=== PATIENT | female | born 1975 | race Caucasian/White ===

== ENCOUNTER 2020-07-14 13:36 | Emergency (ER) | payer MEDICAID ==
[~2020-07-14] VITALS: Ht 157.5 cm; Wt 75.7 kg
[2020-07-14] MEDS ORDERED: IV NS 0.9% 1,000 ML BAG IV ONE (14:00)
--- NOTE | 2020-07-14 14:00 | NUR ---
BIB DAUGHTER C/O HIGH BLOOD SUGAR "UNABLE TO READ PER PT SHOWS HIGH". PT AAOX4, VSS. RR EVEN & UNLABORED. DENIES CP, SOB AT THIS TIME. PT SEEN & EVAL'D BY DR. ALONSO. WILL CONT TO MONITOR.
[2020-07-14 14:20] LABS: BASOPHILS # (AUTO) 0.1 /CMM (0.0-0.2); BASOPHILS % (AUTO) 0.8 % (0.0-2.0); EOSINOPHILS % (AUTO) 0.9 % (0.0-6.0); HEMATOCRIT 36 % (33-45); HEMOGLOBIN 11.8 g/dL (11.5-14.8); LYMPHOCYTES # (AUTO) 2.3 /CMM (0.8-4.8); LYMPHOCYTES % (AUTO) 30.3 % (20.0-44.0); MEAN CORPUSCULAR HGB CONC 33 g/dl (31.0-36.0); MEAN CORPUSCULAR VOLUME 89 fL (82-100); MONOCYTES # (AUTO) 0.7 /CMM (0.1-1.30); NEUTROPHILS # (AUTO) 4.4 /CMM (1.8-8.9); PLATELET COUNT (AUTO) 376 /CMM (150-450); RED BLOOD CELL COUNT(AUTO) 4.07 MIL/uL (4.0-5.2); WHITE BLOOD COUNT (AUTO) 7.5 K/uL (4.3-11.0)
[2020-07-14 14:26] LABS: CALCIUM, SERUM 9.6 mg/dL (8.5-10.1); CARBON DIOXIDE 27 mmol/L (21-32); CHLORIDE 90 mmol/L (98-107); CREATININE 1.3 mg/dL (0.6-1.3); POTASSIUM 4.4 mmol/L (3.5-5.1); SODIUM SERUM 125 mmol/L (136-145); UREA NITROGEN, BLOOD 15 mg/dL (7-18)
[2020-07-14 14:27] LABS: GLUCOSE 703 mg/dL (74-106)
[2020-07-14 14:28] LABS: ALANINE AMINOTRANSFERASE 15 U/L (12-78); ALBUMIN 2.5 g/dL (3.4-5.0); ALKALINE PHOSPHATASE 139 U/L (46-116); ASPARTATE AMINOTRANSFERASE 13 U/L (15-37); BILIRUBIN,DIRECT 0.1 mg/dL (0.0-0.2); BILIRUBIN,TOTAL 0.5 mg/dL (0.2-1.0); LIPASE 150 U/L (73-393); TOTAL PROTEIN, SERUM 8.4 g/dL (6.4-8.2)
[2020-07-14] MEDS ORDERED: IV NS 0.9% 1,000 ML IV ONE (15:00)
[2020-07-14] MEDS ORDERED: INSULIN ASPART/LISPRO 100 UNIT/ML CARTRIDGE SQ STA (16:33)
[2020-07-14] MEDS ORDERED: INSULIN REGULAR, HUMAN 100 UNIT/ML 10 ML VIAL ONE (16:42)
--- NOTE | 2020-07-14 16:48 | NUR ---
MEDICATED PER ERMD ORDER, PT AP WELL. WILL CONT TO MONITOR.
[2020-07-14 17:21] LABS: BILIRUBIN,URINE NEGATIVE (NEGATIVE); COLOR,URINE YELLOW (YELLOW); NITRITE, URINE NEGATIVE (NEGATIVE); PROTEIN,URINE NEGATIVE (NEGATIVE); UGLUCOSE >=1000 mg/dL (NEGATIVE); UROBILINOGEN,URINE 0.2 EU/dL (0.2)
[2020-07-14 17:37] LABS: BACTERIA,URINE Few /HPF (None Seen); LEUKOCYTE ESTERASE ,URINE 1+ (NEGATIVE); SQUAMOUS EPITHELIAL CELL,UR Few /HPF (None Seen)
[2020-07-14] MEDS ORDERED: METF-440 PO (17:42)
[2020-07-14 18:57] VITALS: BP 142/89
--- NOTE | 2020-07-14 18:57 | NUR ---
Patient discharged to home in stable condition. Written and verbal after care instructions given. Patient verbalizes understanding of instruction. IV removed. Catheter intact and site benign. Pressure and 4x4 applied to site. No bleeding noted.
== END 2020-07-14 18:58 | disposition home or self-care (01) ==
LOC: ER 13:40
DX: E11.65 Type 2 diabetes mellitus with hyperglycemia (principal); R00.0 Tachycardia, unspecified; Z86.16 Personal history of COVID-19; Z98.890 Other specified postprocedural states; Z79.4 Long term (current) use of insulin
CPT/HCPCS: 36415; 80048; 80076; 81001; 82962; 83690; 84484; 84703; 85025; 87086; 93005; 96360; 96361; 96372; 99284; J1815; J7030 ×2

== ENCOUNTER 2020-07-20 11:09 | Emergency (ER) | payer MEDICAID ==
[~2020-07-20] VITALS: Ht 157.5 cm; Wt 78.5 kg
[~2020-07-20 11:09] MED LIST: METF-440 PO
--- NOTE | 2020-07-20 11:25 | NUR ---
PATIENT IS BEING SEE BY DR BUSTAMANTE.
--- NOTE | 2020-07-20 11:30 | NUR ---
THE PATIENT IS BIB FAMILY MEMBER FOR C/O HEADACHE, NAUSEA AND VOMITING X 3 DAYS S/P TAKING METFORMIN. THE PATIENT RATES HEADACJE 5/[address] BUSTAMANTE IS AWARE. THE PATIENT DENIES SOB. RESPIRATION REGULAR AND UNLABORED. PATIENT IS PROVIDED WITH A WARM BLANKET FOR COMFORT. WILL CONTINUE TO MONITOR.
[2020-07-20 11:42] LABS: BASOPHILS # (AUTO) 0.1 /CMM (0.0-0.2); BASOPHILS % (AUTO) 0.7 % (0.0-2.0); EOSINOPHILS % (AUTO) 2.1 % (0.0-6.0); HEMATOCRIT 35 % (33-45); HEMOGLOBIN 11.7 g/dL (11.5-14.8); LYMPHOCYTES # (AUTO) 2.1 /CMM (0.8-4.8); LYMPHOCYTES % (AUTO) 27.8 % (20.0-44.0); MEAN CORPUSCULAR HGB CONC 34 g/dl (31.0-36.0); MEAN CORPUSCULAR VOLUME 87 fL (82-100); MONOCYTES # (AUTO) 0.6 /CMM (0.1-1.30); MONOCYTES % (AUTO) 7.9 % (2.0-12.0); NEUTROPHILS # (AUTO) 4.6 /CMM (1.8-8.9); NEUTROPHILS % (AUTO) 61.5 % (43.0-81.0); PLATELET COUNT (AUTO) 521 /CMM (150-450); RED BLOOD CELL COUNT(AUTO) 4.02 MIL/uL (4.0-5.2); WHITE BLOOD COUNT (AUTO) 7.5 K/uL (4.3-11.0)
--- NOTE | 2020-07-20 11:46 | NUR ---
URINE COLLECTED AND SENT IT TO THE LAB
[2020-07-20 11:49] LABS: BILIRUBIN,URINE Negative (NEGATIVE); COLOR,URINE YELLOW (YELLOW); LEUKOCYTE ESTERASE ,URINE Negative (NEGATIVE); NITRITE, URINE Negative (NEGATIVE); PH,URINE 6.5 (5.0-8.0); PROTEIN,URINE 100 mg/dl (NEGATIVE); UGLUCOSE 500 MG/DL mg/dL (NEGATIVE); UROBILINOGEN,URINE 0.2 EU/dL (0.2)
[2020-07-20 11:53] LABS: CALCIUM, SERUM 9.6 mg/dL (8.5-10.1); CREATININE 0.8 mg/dL (0.6-1.3); POTASSIUM 4.6 mmol/L (3.5-5.1)
[2020-07-20 11:57] LABS: BACTERIA,URINE Few /HPF (None Seen); SQUAMOUS EPITHELIAL CELL,UR 0-2 /HPF (None Seen); WBC,URINE 0-2 /HPF (0-3)
[2020-07-20] MEDS ORDERED: INSULIN REGULAR, HUMAN 100 UNIT/ML 10 ML VIAL SQ ONE (12:00)
[2020-07-20 12:14] LABS: ALBUMIN 2.7 g/dL (3.4-5.0); BILIRUBIN,DIRECT 0.1 mg/dL (0.0-0.2); BILIRUBIN,TOTAL 0.5 mg/dL (0.2-1.0); TOTAL PROTEIN, SERUM 8.2 g/dL (6.4-8.2)
--- NOTE | 2020-07-20 12:25 | NUR ---
The patient is alert and oriented x4. Jose pain at this time. Respiration regular and unlabored and denies sob. Patient discharged to home in stable condition. Written and verbal after care instructions given. Patient verbalizes understanding of instruction. The patient left ER in stable condition.
[2020-07-20 12:30] VITALS: BP 138/86
== END 2020-07-20 12:30 | disposition home or self-care (01) ==
LOC: ER 11:10
DX: E11.65 Type 2 diabetes mellitus with hyperglycemia (principal); Z79.84 Long term (current) use of oral hypoglycemic drugs
CPT/HCPCS: 36415; 80048; 80076; 81001; 82962; 83690; 85025; 96372; 99283; J1815

== ENCOUNTER 2021-05-05 14:14 | Emergency (ER) | payer MEDICAID ==
[~2021-05-05] VITALS: Ht 152.4 cm; Wt 72.6 kg
--- NOTE | 2021-05-05 14:25 | NUR ---
PT BIBDAUGHTER C/O LEFT UPPER THIGH ABCESS, FEVER, CHILLS, NAUSEA, HEADACHE AFEBRILE UPON ARRIVAL, HR 124. PT A/OX4. TOLERATING R/A WELL WITH NO SOB.
--- NOTE | 2021-05-05 14:37 | NUR ---
LAW JAIN AT PT'S BEDSIDE
[2021-05-05] MEDS ORDERED: CLIN300C12 PO (15:00)
[2021-05-05 15:19] VITALS: BP 132/76
--- NOTE | 2021-05-05 15:19 | NUR ---
Patient discharged to home in stable condition. Written and verbal after care instructions given. Patient verbalizes understanding of instruction.
== END 2021-05-05 15:20 | disposition home or self-care (01) ==
LOC: ER 14:25
DX: L02.416 Cutaneous abscess of left lower limb (principal); L03.116 Cellulitis of left lower limb; E11.9 Type 2 diabetes mellitus without complications; Z79.84 Long term (current) use of oral hypoglycemic drugs; Z79.2 Long term (current) use of antibiotics
CPT/HCPCS: A6403

== ENCOUNTER 2021-05-12 18:58 | Inpatient (IN) | payer MEDICAID ==
[~2021-05-12] VITALS: Ht 152.4 cm; Wt 86.2 kg
[~2021-05-12 18:58] MED LIST changes: +CLIN300C12 PO
--- NOTE | 2021-05-12 19:58 | NUR ---
BIBS C/O LT THIGH ABSCESS X TUE, SEEN AT [facility] 05/05/21, STATES NOT GETTING BETTER AFTER ABX TREATMENT. PT CHANGED INTO A GOWN AND PLACED ON MONITOR AND V/S STABLE.
[2021-05-12] MEDS ORDERED: ONDANSETRON HCL/PF 4 MG/2 ML VIAL IVP ONE (20:00)
[2021-05-12] MEDS ORDERED: VANCOMYCIN 1 GM in IV D5W 250 ML IV ONE (20:00)
[2021-05-12] MEDS ORDERED: MORPHINE SULFATE INJ 2 MG/ML DISP.SYRIN IV ONE (20:00)
[2021-05-12] MEDS ORDERED: LIDOCAINE 2%-EPI 1:100,000 30 ML VIAL TP ONE (20:00)
[2021-05-12] MEDS ORDERED: HYDROGEN PEROXIDE 480 ML BOTTLE TP ONE (20:00)
[2021-05-12] MEDS ORDERED: PIPERACILLIN /TAZOBACTAM 3.375 G in IV D5W 50 ML IV ONE (20:00)
[2021-05-12] MEDS ORDERED: IV NS 0.9% 1,000 ML BAG IV ONE ×2 (20:00→22:30)
[2021-05-12] MEDS ORDERED: LIDOCAINE 1%-EPI 1:100,000 20 ML VIAL ONE (20:12)
[2021-05-12] MEDS ORDERED: PIPERACILLIN /TAZOBACTAM 3.375 G VIAL IV ONE (20:16)
[2021-05-12] MEDS ORDERED: ONDANSETRON HCL/PF 4 MG/2 ML VIAL ONE (20:16)
[2021-05-12] MEDS ORDERED: VANCOMYCIN 1 GM VIAL ONE (20:16)
[2021-05-12] MEDS ORDERED: MORPHINE SULFATE INJ 4 MG/ML DISP.SYRIN ONE (20:17)
--- NOTE | 2021-05-12 20:32 | NUR ---
RFA #20G S/L; PATENT AND INTACT. BLOOD COLLECTED AND GIVEN TO LAB
--- NOTE | 2021-05-12 20:34 | NUR ---
RUSSELL CAO AT PT'S BEDSIDE DOING WOUNDCARE TO PT'S LEFT THIGH. WOUND CX COLLECTED AND SENT TO LAB
[2021-05-12 21:04] LABS: CALCIUM, SERUM 9.4 mg/dL (8.5-10.1); CREATININE 0.9 mg/dL (0.6-1.3); POTASSIUM 4.4 mmol/L (3.5-5.1)
[2021-05-12 21:10] LABS: ALBUMIN 2.5 g/dL (3.4-5.0); BILIRUBIN,DIRECT 0.1 mg/dL (0.0-0.2); BILIRUBIN,TOTAL 0.3 mg/dL (0.2-1.0); TOTAL PROTEIN, SERUM 8.2 g/dL (6.4-8.2)
[2021-05-12 21:51] LABS: BASOPHILS # (AUTO) 0.1 K/uL (0.0-0.2); BASOPHILS % (AUTO) 0.6 % (0.0-2.0); EOSINOPHILS % (AUTO) 1.9 % (0.0-6.0); HEMATOCRIT 29 % (33-45); HEMOGLOBIN 9.6 g/dL (11.5-14.8); LYMPHOCYTES # (AUTO) 4.9 K/uL (0.8-4.8); LYMPHOCYTES % (AUTO) 37.9 % (20.0-44.0); MEAN CORPUSCULAR HGB CONC 33 g/dl (31.0-36.0); MEAN CORPUSCULAR VOLUME 88 fL (82-100); MONOCYTES % (AUTO) 7.6 % (2.0-12.0); NEUTROPHILS # (AUTO) 6.7 K/uL (1.8-8.9); PLATELET COUNT (AUTO) 538 K/uL (150-450); RED BLOOD CELL COUNT(AUTO) 3.32 MIL/uL (4.0-5.2); WHITE BLOOD COUNT (AUTO) 12.9 K/uL (4.3-11.0)
[2021-05-12] MEDS ORDERED: ZOLPIDEM TARTRATE 5 MG TABLET PO PRN (23:30)
[2021-05-12] MEDS ORDERED: ACETAMINOPHEN 325 MG TABLET PO PRN (23:30)
[2021-05-12] MEDS ORDERED: MAG HYDROX/AL HYDROX/SIMETH 30 ML UDC PO PRN (23:30)
[2021-05-12] MEDS ORDERED: MAGNESIUM HYDROXIDE 30 ML UDC PO PRN (23:30)
[2021-05-12] MEDS ORDERED: Z GUARD REMEDY 4 OZ OINT TP PRN (23:30)
[2021-05-12] MEDS ORDERED: ONDANSETRON HCL/PF 4 MG/2 ML VIAL IVP PRN (23:30)
--- NOTE | 2021-05-12 23:54 | NUR ---
REPORT GIVEN TO SUMANTH
[2021-05-13] MEDS ORDERED: PIPERACILLIN /TAZOBACTAM 4.5 G in IV D5W 50 ML IV SCH
--- NOTE | 2021-05-13 00:06 | NUR ---
PT TRANSPORTED TO ROOM 314 ON [facility] PER ACLS PROTOCOL WITHOUT INCIDENT
[2021-05-13 00:10] VITALS: BP 160/96
--- NOTE | 2021-05-13 00:10 | NUR ---
MS RN NOTES PATIENT ARRIVED ON UNIT VIA GURNEY WITH ER NURSE. PATIENT LAYING AWAKE IN BED. PATIENT IS OCCITAN SPEAKING. A/OX4. PATIENT WITH REGULAR AND UNLABORED BREATHING ON ROOM AIR TOLERATED WELL. NO SIGNS AND SYMPTOMS OF DISTRESS NOTED AT THIS TIME. NO COMPLAINS OF PAIN OR DISCOMFORT AT THIS TIME. IV ACCESS RFA G #20 SL. IV ACCESS PATENT AND INTACT. SAFETY PRECAUTIONS ENFORCED WITH BED LOCKED AND AT LOWEST POSITION. SIDERAILS UP X2. CALL LIGHT WITHIN REACH AT ALL TIMES. WILL CONTINUE TO MONITOR PATIENT.
[2021-05-13] MEDS: IV NS 0.9% 1,000 ML IV SCH ×3 (00:21→19:48)
[2021-05-13 01:29] LABS: BILIRUBIN,URINE NEGATIVE (NEGATIVE); COLOR,URINE YELLOW (YELLOW); LEUKOCYTE ESTERASE ,URINE NEGATIVE (NEGATIVE); NITRITE, URINE NEGATIVE (NEGATIVE); PH,URINE 6.5 (5.0-8.0); PROTEIN,URINE >=300 mg/dl (NEGATIVE); UGLUCOSE 250 MG/DL mg/dL (NEGATIVE); UROBILINOGEN,URINE 0.2 EU/dL (0.2)
[2021-05-13] MEDS ORDERED: ZOSYN IVPB 3.375 G in IV D5W 50ml IV ONE (02:00)
[2021-05-13] MEDS ORDERED: PIPERACILLIN /TAZOBACTAM 3.375 G VIAL IV ONE (02:00)
[2021-05-13 06:48] LABS: CALCIUM, SERUM 8.8 mg/dL (8.5-10.1); CREATININE 0.9 mg/dL (0.6-1.3); MAGNESIUM 1.7 mg/dL (1.8-2.4); PHOSPHORUS 3.6 mg/dL (2.5-4.9); POTASSIUM 3.9 mmol/L (3.5-5.1)
--- NOTE | 2021-05-13 06:49 | NUR ---
MS RN CLOSING NOTES PATIENT ASLEEP EASILY AROUSIBLE IN BED. PATIENT IS [place] SPEAKING. A/OX4. PATIENT WITH REGULAR AND UNLABORED BREATHING ON ROOM AIR TOLERATED WELL. NO SIGNS AND SYMPTOMS OF DISTRESS NOTED AT THIS TIME. NO COMPLAINS OF PAIN OR DISCOMFORT AT THIS TIME. IV ACCESS RFA G #20 RUNNING NS @ 100 ML/HR. IV ACCESS PATENT AND INTACT. SAFETY PRECAUTIONS ENFORCED WITH BED LOCKED AND AT LOWEST POSITION. SIDERAILS UP X2. CALL LIGHT WITHIN REACH AT ALL TIMES. WILL ENDORSE CONTINUITY OF CARE TO DAY SHIFT NURSE.
[2021-05-13 08:00] VITALS: BP 159/90
[2021-05-13 08:14] LABS: BASOPHILS % (AUTO) 0.5 % (0.0-2.0); EOSINOPHILS % (AUTO) 2.1 % (0.0-6.0); HEMATOCRIT 28 % (33-45); HEMOGLOBIN 9.4 g/dL (11.5-14.8); LYMPHOCYTES % (AUTO) 30.5 % (20.0-44.0); MEAN CORPUSCULAR HGB CONC 34 g/dl (31.0-36.0); MEAN CORPUSCULAR VOLUME 88 fL (82-100); MONOCYTES # (AUTO) 0.6 K/uL (0.1-1.30); NEUTROPHILS # (AUTO) 5.9 K/uL (1.8-8.9); NEUTROPHILS % (AUTO) 60.9 % (43.0-81.0); PLATELET COUNT (AUTO) 517 K/uL (150-450); RED BLOOD CELL COUNT(AUTO) 3.17 MIL/uL (4.0-5.2); WHITE BLOOD COUNT (AUTO) 9.7 K/uL (4.3-11.0)
[2021-05-13 09:02] LABS: BACTERIA,URINE Many /HPF (None Seen); SQUAMOUS EPITHELIAL CELL,UR Many /HPF (None Seen)
[2021-05-13 09:03] LABS: RBC,URINE 0-2 /HPF (0-2); WBC,URINE 0-2 /HPF (0-3)
[2021-05-13 09:04] LABS: URINE AMORPHOUS PHOSPHATES Moderate /HPF (None Seen)
[2021-05-13] MEDS: METFORMIN 500 MG TABLET PO SCH ×2 (09:23→17:47)
[2021-05-13] MEDS: VANCOMYCIN 1 GM in IV D5W 250ml IV SCH ×2 (10:03→22:05)
[2021-05-13] MEDS: ZOSYN IVPB 3.375 G in IV D5W 50ml IV SCH ×2 (14:22→19:10)
[2021-05-13] MEDS: Magnesium 1GM/D5W 100ML PREMIX 100 ML IV SCH ×2 (14:24→17:48)
[2021-05-13 16:00] VITALS: BP 150/78
--- NOTE | 2021-05-13 19:30 | NUR ---
RN OPENING NOTE PATIENT IN BED AWAKE, PATIENT IS MOSTLY [place] SPEAKING. A/O X 4. PATIENT IS ON RA, TOLERATING WELL, NO SOB. PATIENT HAS CANE AT BEDSIDE. DRESSING ON L THIGH ABSCESS. PATIENT HAS A L FA 20G WITH NS @100 ML/HR. PATIENT IS ABLE TO MAKE NEEDS KNOWN. NO REPORTS OF PAIN AT THIS TIME. SAFETY MEASURES IN PLACE: BED LOCKED AND IN LOWEST POSITION, CALL LIGHT WITHIN REACH, SIDE RAILS UP. WILL MONITOR PATIENT CLOSELY.
--- NOTE | 2021-05-13 19:56 | NUR ---
MS RN CLOSING NOTES PATIENT IN BED. PATIENT IS [place] SPEAKING. A/OX4. PATIENT WITH REGULAR AND UNLABORED BREATHING ON ROOM AIR TOLERATED WELL. NO SIGNS AND SYMPTOMS OF DISTRESS NOTED AT THIS TIME. NO COMPLAINS OF PAIN OR DISCOMFORT AT THIS TIME. IV ACCESS RFA G #20 RUNNING NS @ 100 ML/HR. IV ACCESS PATENT AND INTACT. SAFETY PRECAUTIONS ENFORCED WITH BED LOCKED AND AT LOWEST POSITION. SIDERAILS UP X2. CALL LIGHT WITHIN REACH AT ALL TIMES. WILL ENDORSE CONTINUITY OF CARE TO NEXT SHIFT
[2021-05-13 20:00] VITALS: BP 174/92
--- NOTE | 2021-05-13 20:39 | NUR ---
RN NOTE DR. JHAVERI PAGED RE: PATIENT NOT HAVING ACCUCHECKS. MD ORDERED ACCUCHECK ACHS NO SLIDING SCALE SINCE PT HAS METFORMIN IN AM. ORDERS CARRIED OUT.
[2021-05-13] MEDS ORDERED: DEXTROSE 50%-WATER 50 ML DISP.SYRIN IV PRN (21:00)
[2021-05-13] MEDS: BLOOD SUGAR DIAGNOSTIC 1 EACH STRIP IN SCH (22:05)
--- NOTE | 2021-05-13 22:30 | NUR ---
RN NOTE PATIENT BS 258 MG/DL. NO COVERAGE AT THIS TIME PER MD ORDER. WILL MONITOR PATIENT FOR HYPO/HYPERGLYCEMIA.
[2021-05-14] MEDS: ZOSYN IVPB 3.375 G in IV D5W 50ml IV SCH ×3 (01:22→12:32)
[2021-05-14] MEDS: IV NS 0.9% 1,000 ML IV SCH ×2 (04:44→15:30)
--- NOTE | 2021-05-14 06:16 | NUR ---
RN NOTE BS 212 MG/DL, NO COVERAGE PER MD ORDER, WILL CONTINUE TO MONITOR FOR HYPO/HYPERGLYCEMIA
[2021-05-14] MEDS: BLOOD SUGAR DIAGNOSTIC 1 EACH STRIP IN SCH ×2 (07:06→12:23)
--- NOTE | 2021-05-14 07:29 | NUR ---
RN CLOSING NOTE PATIENT IN BED AWAKE, PATIENT IS MOSTLY [place] SPEAKING. A/O X 4. PATIENT IS ON RA, TOLERATING WELL, NO SOB. PATIENT HAS CANE AT BEDSIDE. DRESSING ON L THIGH ABSCESS, WOUND CARE RENDERED. WOUND CONSULT ORDERED. PATIENT HAS A L FA 20G WITH NS @100 ML/HR. PATIENT IS ABLE TO MAKE NEEDS KNOWN. NO REPORTS OF PAIN AT THIS TIME. SAFETY MEASURES IN PLACE: BED LOCKED AND IN LOWEST POSITION, CALL LIGHT WITHIN REACH, SIDE RAILS UP. ALL NEEDS MET AND ATTENDED. ALL ORDERS CARRIED OUT. WILL ENDORSE TO DAY SHIFT NURSE FOR MCKENNA.
[2021-05-14 08:10] LABS: CALCIUM, SERUM 9.1 mg/dL (8.5-10.1); CREATININE 0.9 mg/dL (0.6-1.3); MAGNESIUM 2.2 mg/dL (1.8-2.4)
--- NOTE | 2021-05-14 08:11 | NUR ---
MS/RN OPENING NOTE RECEIVED PATIENT IN BED AWAKE, A/O X 4. PATIENT IS ON ROOM AIR, TOLERATING WELL, NO SOB. PATIENT IS ABLE TO MAKE NEEDS KNOWN. NO REPORTS OF PAIN AT THIS TIME. PATIENT HAS CANE AT BEDSIDE. DRESSING ON L THIGH ABSCESS, CLEAN AND INTACT. PATIENT HAS A LEFT FA #20G WITH NS @100 ML/HR. SAFETY MEASURES IN PLACE: BED LOCKED AND IN LOWEST POSITION, CALL LIGHT WITHIN REACH, SIDE RAILS UP. WILL CONTINUE TO MONITOR.
--- NOTE | 2021-05-14 08:34 | NUR ---
WOUND CARE CONSULT: PT EATING AT THIS TIME. REVIEWED CHART, NURSING DOCUMENTATION AND PHOTO WHICH INDICATES OPEN WOUND, STATUS POST I&D FOR LEFT THIGH ABSCESS, PRESENT ON ADMISSION. RECOMMENDATIONS MADE FOR WOUND CARE AND SKIN PROTECTION. DISCUSSED WITH NURSING STAFF AND MASON TENDER RESTORATION LABOR. IN AGREEMENT WITH PLAN OF CARE.
[2021-05-14 08:52] VITALS: BP 144/98
[2021-05-14] MEDS: METFORMIN 500 MG TABLET PO SCH ×2 (09:40→16:38)
[2021-05-14] MEDS: VANCOMYCIN 1 GM in IV D5W 250ml IV SCH (10:00)
--- NOTE | 2021-05-14 11:07 | NUR ---
MS/RN NOTES- VANCO TROUGH IS 21 CALLED PHARMACY AND NOTIFIED THAT VANCO TROUGH RESULT IS 21. PER PHARMACY. HOLD AND THEY WILL CHANGE THE DOSE.
[2021-05-14] MEDS ORDERED: INFLUENZA VACCINE 2021-22 0.5 ML DISP.SYRIN IM ONE (16:00)
--- NOTE | 2021-05-14 17:12 | NUR ---
MS/LIGHTING ENGINEER NOTES PATIENT IS ALERT AND ORIENTED X4, ABLE TO MAKE NEEDS KNOWN. AMBULATORY WITH A CANE. PATIENT IS MEDICALLY STABLE AND MD ORDERED DISCHARGE TO HOME FOR THE PATIENT. IV ACCESS DISCONTINUED. ALL BELONGINGS ACCOUNTED FOR. DISCHARGE INSTRUCTIONS GIVEN TO PATIENT AND DAUGHTER AT BEDSIDE, ABLE TO VERBALIZED UNDERSTANDING. ESCORTED PATIENT DOWN TO THE LOBBY AND PATIENT'S PICKED HER UP VIA PRIVATE CAR.
== END 2021-05-14 17:15 | disposition home or self-care (01) | DRG 720 ==
LOC: ER 19:00 → MED 22:54
PROVIDERS: ADMIT Family Medicine; ATTEND Internal Medicine
DX: A41.9 Sepsis, unspecified organism (principal); N17.0 Acute kidney failure with tubular necrosis; E43 Unspecified severe protein-calorie malnutrition; L02.416 Cutaneous abscess of left lower limb; D75.839 Thrombocytosis, unspecified; D64.9 Anemia, unspecified; E11.65 Type 2 diabetes mellitus with hyperglycemia; E78.5 Hyperlipidemia, unspecified; L03.116 Cellulitis of left lower limb; Z20.822 Contact with and (suspected) exposure to COVID-19; I10 Essential (primary) hypertension; Z79.84 Long term (current) use of oral hypoglycemic drugs; Z79.4 Long term (current) use of insulin
CPT/HCPCS: 36415; 80048-TC; 80076-TC; 80202-TC; 81001; 82962-TC; 83605-TC; 83735-TC; 84100-TC; 84702-TC; 85025-TC; 87040-TC; 87070-TC; 87081-TC; 87086-TC; 87186-TC; A6253; A6407; G0378; J2270; J2405; J2543; J3370; J3475; J3490; J7030; J7050; J7060; Q2036

== ENCOUNTER 2022-01-26 12:52 | Emergency (ER) | payer MEDICAID, OTHER ==
[~2022-01-26] VITALS: Ht 160 cm; Wt 90.7 kg
--- NOTE | 2022-01-26 13:00 | NUR ---
RECEIVED PT 47 YRS FEMALE CAME FROM HOME accompany by nilo for crispin childs for one week
--- NOTE | 2022-01-26 14:19 | NUR ---
DR LENNON AT BEDSIDE FOR EVAL
[2022-01-26] MEDS ORDERED: FUROSEMIDE 20 MG TABLET ONE (14:28)
[2022-01-26] MEDS ORDERED: FUROSEMIDE 20 MG TABLET PO ONE (14:30)
[2022-01-26 14:55] LABS: BASOPHILS # (AUTO) 0.1 K/uL (0.0-0.2); BASOPHILS % (AUTO) 0.7 % (0.0-2.0); EOSINOPHILS % (AUTO) 2.5 % (0.0-6.0); HEMATOCRIT 32 % (33-45); HEMOGLOBIN 10.4 g/dL (11.5-14.8); LYMPHOCYTES # (AUTO) 2.3 K/uL (0.8-4.8); LYMPHOCYTES % (AUTO) 28.3 % (20.0-44.0); MEAN CORPUSCULAR HGB CONC 33 g/dl (31.0-36.0); MEAN CORPUSCULAR VOLUME 87 fL (82-100); MONOCYTES # (AUTO) 0.6 K/uL (0.1-1.30); MONOCYTES % (AUTO) 7.2 % (2.0-12.0); NEUTROPHILS # (AUTO) 4.9 K/uL (1.8-8.9); NEUTROPHILS % (AUTO) 61.3 % (43.0-81.0); PLATELET COUNT (AUTO) 363 K/uL (150-450); RED BLOOD CELL COUNT(AUTO) 3.65 MIL/uL (4.0-5.2)
--- NOTE | 2022-01-26 15:00 | NUR ---
DR. LENNON NOTEFYED ABOUT BP 186/95 [facility] said pt HX HIN AND DID NOT TOOK HERE MEDITION TODAY NO TX at this time
[2022-01-26 15:14] LABS: CALCIUM, SERUM 9.1 mg/dL (8.5-10.1); CREATININE 1.5 mg/dL (0.6-1.3); POTASSIUM 4.6 mmol/L (3.5-5.1)
[2022-01-26 15:18] LABS: ALBUMIN 2.3 g/dL (3.4-5.0); BILIRUBIN,DIRECT 0.1 mg/dL (0.0-0.2); BILIRUBIN,TOTAL 0.5 mg/dL (0.2-1.0); TOTAL PROTEIN, SERUM 7.6 g/dL (6.4-8.2)
[2022-01-26] MEDS ORDERED: FURO-145 PO (16:47)
[2022-01-26] MEDS ORDERED: POTA-58 PO (16:47)
--- NOTE | 2022-01-26 16:50 | NUR ---
DR. LENNON SPOOK with PT and family order was was given
--- NOTE | 2022-01-26 17:05 | NUR ---
bp 181/78 mmhg hr 79b/min dinisis headak or dizzness DR. LENNON NOTEFED INSTRACTED PT talk antihyper tenstion mediction when she go home DOUGHTER AT BED SIDE
--- NOTE | 2022-01-26 17:06 | NUR ---
Patient discharged to home in stable condition. Written and verbal after care instructions given. Patient verbalizes understanding of instruction.
[2022-01-26 17:19] VITALS: BP 181/78
== END 2022-01-26 17:20 | disposition home or self-care (01) ==
LOC: ER 12:54
DX: R60.0 Localized edema (principal); I10 Essential (primary) hypertension; R73.9 Hyperglycemia, unspecified; Z79.899 Other long term (current) drug therapy
CPT/HCPCS: 36415; 71045-TC; 80048-TC; 80076-TC; 82962-TC; 83880; 85025-TC; 85730-TC; 93970-TC

== ENCOUNTER 2022-04-06 15:01 | Emergency (ER) | payer OTHER ==
[~2022-04-06] VITALS: Ht 160 cm; Wt 117.9 kg
[~2022-04-06 15:01] MED LIST changes: +FURO-145 PO; +POTA-58 PO
[2022-04-06 15:19] VITALS: BP 177/89
--- NOTE | 2022-04-06 18:35 | NUR ---
Patient discharged to home in stable condition. Written and verbal after care instructions given. Patient verbalizes understanding of instruction.
== END 2022-04-06 18:34 | disposition home or self-care (01) ==
LOC: ER 15:16
DX: R60.0 Localized edema (principal); I10 Essential (primary) hypertension; E66.01 Morbid (severe) obesity due to excess calories; Z68.42 Body mass index [BMI] 45.0-49.9, adult; E11.9 Type 2 diabetes mellitus without complications; E78.5 Hyperlipidemia, unspecified; Z79.4 Long term (current) use of insulin; Z79.899 Other long term (current) drug therapy
CPT/HCPCS: 93971-TC

== ENCOUNTER 2022-08-31 17:28 | Inpatient (IN) | payer MEDICAID, OTHER ==
[~2022-08-31] VITALS: Ht 157.5 cm; Wt 101.6 kg
--- NOTE | 2022-08-31 17:50 | NUR ---
RECEIVED PT 47 YRS FEMALE FROM HOME AND SWALLEN IN LOWER EXTRAMITY AND REDNESS WITH BLISTER
[2022-08-31] MEDS ORDERED: AMOXICILLIN TRIHYDRATE 250 MG CAPSULE PO ONE (18:00)
--- NOTE | 2022-08-31 18:00 | NUR ---
SEEN BY DR. RICARDO RN
--- NOTE | 2022-08-31 18:20 | NUR ---
UA SENT TO LAB
--- NOTE | 2022-08-31 18:26 | NUR ---
BLOOD DROW BY LAB TACH AT BED SIDE
--- NOTE | 2022-08-31 18:30 | NUR ---
US DONE AT BED SIDE
[2022-08-31 18:59] LABS: BASOPHILS # (AUTO) 0.1 K/uL (0.0-0.2); BASOPHILS % (AUTO) 1.6 % (0.0-2.0); EOSINOPHILS % (AUTO) 1.2 % (0.0-6.0); HEMATOCRIT 33 % (33-45); HEMOGLOBIN 10.6 g/dL (11.5-14.8); LYMPHOCYTES # (AUTO) 1.4 K/uL (0.8-4.8); LYMPHOCYTES % (AUTO) 14.9 % (20.0-44.0); MEAN CORPUSCULAR HGB CONC 32 g/dl (31.0-36.0); MEAN CORPUSCULAR VOLUME 90 fL (82-100); MONOCYTES # (AUTO) 3.5 K/uL (0.1-1.30); NEUTROPHILS # (AUTO) 4.2 K/uL (1.8-8.9); NEUTROPHILS % (AUTO) 45.3 % (43.0-81.0); PLATELET COUNT (AUTO) 409 K/uL (150-450); RED BLOOD CELL COUNT(AUTO) 3.67 MIL/uL (4.0-5.2); WHITE BLOOD COUNT (AUTO) 9.4 K/uL (4.3-11.0)
[2022-08-31 19:01] LABS: BILIRUBIN,URINE NEGATIVE (NEGATIVE); COLOR,URINE YELLOW (YELLOW); LEUKOCYTE ESTERASE ,URINE NEGATIVE (NEGATIVE); NITRITE, URINE NEGATIVE (NEGATIVE); PH,URINE 6.5 (5.0-8.0); PROTEIN,URINE 3+ mg/dl (NEGATIVE); UGLUCOSE 3+ mg/dL (NEGATIVE); UROBILINOGEN,URINE 0.2 EU/dL (0.2)
[2022-08-31 19:14] LABS: BACTERIA,URINE 1+ /HPF (None Seen); SQUAMOUS EPITHELIAL CELL,UR Many /HPF (None Seen); WBC,URINE NONE SEEN /HPF (0-3)
[2022-08-31 19:15] LABS: CALCIUM, SERUM 8.9 mg/dL (8.5-10.1); CARBON DIOXIDE 20 mmol/L (21-32); CHLORIDE 110 mmol/L (98-107); CREATININE 2.7 mg/dL (0.6-1.3); GLUCOSE 196 mg/dL (74-106); POTASSIUM 4.1 mmol/L (3.5-5.1); SODIUM SERUM 140 mmol/L (136-145); UREA NITROGEN, BLOOD 29 mg/dL (7-18)
[2022-08-31 19:15] LABS: FINE GRANULAR CASTS,URINE Rare /LPF (None Seen); HYALINE CASTS, URINE Moderate /LPF (None Seen); MUCUS,URINE Moderate /LPF (None Seen)
[2022-08-31 19:21] LABS: ALANINE AMINOTRANSFERASE 15 U/L (12-78); ALBUMIN 1.6 g/dL (3.4-5.0); ALKALINE PHOSPHATASE 118 U/L (46-116); ASPARTATE AMINOTRANSFERASE 15 U/L (15-37); BILIRUBIN,TOTAL 0.2 mg/dL (0.2-1.0)
--- NOTE | 2022-08-31 19:42 | NUR ---
Covid swab done.
--- NOTE | 2022-08-31 19:44 | NUR ---
HAND OFF TO ROBIN VELEZ
[2022-08-31 19:47] LABS: EOSINOPHILS % (MANUAL) 1 % (0-4); LYMPHOCYTES % (MANUAL) 24 % (16-48); MONOCYTES % (MANUAL) 8 % (0-11.0); NEUTROPHILS % (MANUAL) 67 (42-76)
[2022-08-31] MEDS ORDERED: VANCOMYCIN 1 GM in IV D5W 250 ML IV ONE (20:00)
--- NOTE | 2022-08-31 20:08 | NUR ---
Xray done at bedside.
[2022-08-31] MEDS ORDERED: VANCOMYCIN 1 GM /D5W 250 ML PB IV ONE (20:23)
--- NOTE | 2022-08-31 20:24 | NUR ---
LAB AT BEDSIDE TO DRAW CULTURES
[2022-08-31] MEDS ORDERED: CLONIDINE HCL 0.1 MG TABLET PO ONE (20:30)
[2022-08-31] MEDS ORDERED: CLONIDINE HCL 0.1 MG TABLET ONE (20:40)
--- NOTE | 2022-08-31 23:24 | NUR ---
Patient Tranfers to RM 109 rport given to Elizabeth. Pt6 awake, alert and oriented. Vital stable. RA sat 99%.
[2022-08-31] MEDS ORDERED: DEXTROSE 50%-WATER 50 ML DISP.SYRIN IV PRN (23:30)
[2022-08-31] MEDS ORDERED: ZOLPIDEM TARTRATE 5 MG TABLET PO PRN (23:30)
[2022-08-31 23:40] VITALS: BP 169/91
--- NOTE | 2022-09-01 04:28 | NUR ---
closing notes: alert and oriented x4 Citizen Of [place] Spking movin all extremities ambulates with a cane steady gate dry lesion on her forehead dry lesions on miguel legs and red rash she stated the rash is itchy patient is a diab U/S of the legs showed NO DVT both legs are swollen noted the MD ordered PO lasix BID wearing eye glasses denies pain ECHO AND WOUND CONSULT ORDERED SNR ON THE CAR WRECKER
[2022-09-01 05:34] VITALS: BP 156/82
--- NOTE | 2022-09-01 07:10 | NUR ---
RN NOTE RECEIVED PATIENT IN BED RESTING ALERT ORIENTEDX4 VERBALLY RESPONSIVE ON ROOM AIR,O2:96% IV ACCESS ON RAC INTACT PATENT,AMBULATORY WITH CANE,CONTINET BOWEL/BLADDER SAFETY MEASURE IMPLEMENT BED IN LOW POSITION AND LOCKED,CALL LIGHT WITHIN REACH,CONTINUE TO MONITOR.
--- NOTE | 2022-09-01 07:17 | NUR ---
WOUND CARE CONSULT: REVIEWED CHART, NURSING DOCUMENTATION AND PHOTOS WHICH INDICATE DRY LESION TO FOREHEAD AND BILATERAL LOWER LEGS REDNESS/LESIONS, PRESENT ON ADMISSION. DR SANTO CALLED FOR DPM CONSULT. DISCUSSED SKIN PROTECTION WITH NURSING STAFF. MD IN AGREEMENT WITH PLAN OF CARE.
[2022-09-01 07:26] LABS: BASOPHILS # (AUTO) 0.1 K/uL (0.0-0.2); BASOPHILS % (AUTO) 1.1 % (0.0-2.0); EOSINOPHILS % (AUTO) 3.6 % (0.0-6.0); HEMATOCRIT 28 % (33-45); HEMOGLOBIN 8.9 g/dL (11.5-14.8); LYMPHOCYTES # (AUTO) 2.6 K/uL (0.8-4.8); LYMPHOCYTES % (AUTO) 31.6 % (20.0-44.0); MEAN CORPUSCULAR HGB CONC 32 g/dl (31.0-36.0); MEAN CORPUSCULAR VOLUME 89 fL (82-100); MONOCYTES # (AUTO) 0.7 K/uL (0.1-1.30); MONOCYTES % (AUTO) 8.1 % (2.0-12.0); NEUTROPHILS # (AUTO) 4.6 K/uL (1.8-8.9); NEUTROPHILS % (AUTO) 55.6 % (43.0-81.0); PLATELET COUNT (AUTO) 345 K/uL (150-450); RED BLOOD CELL COUNT(AUTO) 3.11 MIL/uL (4.0-5.2); WHITE BLOOD COUNT (AUTO) 8.2 K/uL (4.3-11.0)
[2022-09-01] MEDS: BLOOD SUGAR DIAGNOSTIC 1 EACH STRIP VI SCH ×4 (07:33→21:47)
[2022-09-01 07:40] LABS: CALCIUM, SERUM 8.2 mg/dL (8.5-10.1); CREATININE 2.5 mg/dL (0.6-1.3)
[2022-09-01 07:44] LABS: THYROID STIMULATING HORMONE 2.91 uIU/mL (0.358-3.74)
[2022-09-01 08:00] VITALS: BP 181/93
[2022-09-01] MEDS: CARVEDILOL 6.25 MG TABLET PO SCH ×2 (08:13→16:58)
[2022-09-01] MEDS: FUROSEMIDE 40 MG/4 ML VIAL IV SCH ×2 (08:13→16:58)
[2022-09-01] MEDS: LINAGLIPTIN 5 MG TABLET PO SCH (08:55)
[2022-09-01] MEDS: AMLODIPINE BESYLATE 5 MG TABLET PO SCH (08:55)
[2022-09-01] MEDS: INSULIN REGULAR, HUMAN 100 UNIT/ML 3 ML VIAL SQ PRN ×2 (08:57→17:40)
[2022-09-01] MEDS ORDERED: CEFEPIME 2 GM in IV D5W 100 ML IV ONE (09:00)
[2022-09-01] MEDS ORDERED: AMLODIPINE BESYLATE 5 MG TABLET PO SCH (09:00)
[2022-09-01 12:00] VITALS: BP 139/94
[2022-09-01] MEDS ORDERED: ATOR10TA PO (12:07)
[2022-09-01] MEDS ORDERED: INSU100I4 SQ (12:07)
[2022-09-01] MEDS ORDERED: METF-440 PO (12:07)
[2022-09-01] MEDS ORDERED: LISI40TA13 PO (12:07)
[2022-09-01] MEDS ORDERED: GLIM4TAB37 PO (12:07)
[2022-09-01] MEDS ORDERED: ASPI-1420 PO (15:26)
[2022-09-01] MEDS ORDERED: FURO20TA4 PO (15:26)
[2022-09-01 16:00] VITALS: BP 158/89
[2022-09-01] MEDS: ATORVASTATIN 10 MG TABLET PO SCH (17:11)
--- NOTE | 2022-09-01 18:53 | NUR ---
RN NOTE PATIENT REMAINS ALERT ORIENTED X4 VERBALLY RESPONSIVE NO SOB NOT ACUTE DISTRESS NOTED,ON ROOM AIR O2:100% ALL DUE MEDS GIVEN MD ORDERED ALL NEEDS MET ENDORSE NEXT COMING SHIFT FOR CONTINUATION CARE.
--- NOTE | 2022-09-01 19:30 | NUR ---
PAPER MILL SUPERVISOR OPENING NOTE RECEIVED PATIENT FROM AM NURSE; PATIENT IS A/O X 4, ABLE TO MAKE NEEDS KNOWN; LAO SPEAKING BUT CAN UNDERSTAND LITTLE [place]; STABLE ON ROOM AIR, BREATHING EVENLY AND NO S/S OF DISTRESS NOTED; HOOKED TO TELE MONITORING; WITH IV ACCESS AT RIGHT AC G#20; SAFETY MEASURES IMPLEMENTED, BED LOCKED IN LOW POSITION, SIDE RAILS UP X 2, CALL LIGHT AND TABLE WITHIN REACH; ENCOURAGED VERBALIZATION OF NEEDS; WILL CONTINUE TO MONITOR THROUGHOUT SHIFT
[2022-09-01] MEDS: VANCOMYCIN 1 GM in IV D5W 250ml IV SCH (19:55)
[2022-09-01 20:00] VITALS: BP 152/88
[2022-09-01] MEDS: ACETAMINOPHEN 325 MG TABLET PO PRN (20:57)
[2022-09-01] MEDS: *INSULIN REGULAR(HUMULIN R)HUM 100 UNIT/ML VIAL SQ PRN (21:50)
[2022-09-02] VITALS: BP 162/89
[2022-09-02 04:00] VITALS: BP 150/81
[2022-09-02 06:21] LABS: BASOPHILS # (AUTO) 0.1 K/uL (0.0-0.2); EOSINOPHILS % (AUTO) 3.4 % (0.0-6.0); HEMATOCRIT 28 % (33-45); LYMPHOCYTES # (AUTO) 2.6 K/uL (0.8-4.8); LYMPHOCYTES % (AUTO) 30.5 % (20.0-44.0); MEAN CORPUSCULAR HGB CONC 32 g/dl (31.0-36.0); MEAN CORPUSCULAR VOLUME 88 fL (82-100); MONOCYTES # (AUTO) 0.8 K/uL (0.1-1.30); NEUTROPHILS # (AUTO) 4.8 K/uL (1.8-8.9); NEUTROPHILS % (AUTO) 56.1 % (43.0-81.0); PLATELET COUNT (AUTO) 362 K/uL (150-450); RED BLOOD CELL COUNT(AUTO) 3.17 MIL/uL (4.0-5.2); WHITE BLOOD COUNT (AUTO) 8.5 K/uL (4.3-11.0)
[2022-09-02 06:33] LABS: CALCIUM, SERUM 8.8 mg/dL (8.5-10.1); CREATININE 2.5 mg/dL (0.6-1.3); POTASSIUM 3.8 mmol/L (3.5-5.1)
[2022-09-02] MEDS: BLOOD SUGAR DIAGNOSTIC 1 EACH STRIP VI SCH ×4 (07:21→22:27)
--- NOTE | 2022-09-02 07:39 | NUR ---
AUTO FLEET MANAGER CLOSING NOTE PATIENT IS A/O X 4, ABLE TO MAKE NEEDS KNOWN; OCCITAN SPEAKING BUT CAN UNDERSTAND LITTLE MALAY; STABLE ON ROOM AIR, BREATHING EVENLY AND NO S/S OF DISTRESS NOTED; HOOKED TO TELE MONITORING CURRENTLY READING SINUS RHYTHM; WITH IV ACCESS AT RIGHT AC G#20 SALINE LOCK, INTACT AND PATENT; NO COMPLAINTS OF PAIN AND DISCOMFORT AT THIS TIME; SAFETY MEASURES IMPLEMENTED, BED LOCKED IN LOW POSITION, SIDE RAILS UP X 2, CALL LIGHT AND TABLE WITHIN REACH; ENDORSED TO AM NURSE FOR MCKENNA.
[2022-09-02 08:00] VITALS: BP 162/83
[2022-09-02] MEDS: FUROSEMIDE 40 MG/4 ML VIAL IV SCH ×2 (08:17→17:04)
[2022-09-02] MEDS: AMLODIPINE BESYLATE 5 MG TABLET PO SCH (08:17)
[2022-09-02] MEDS: LINAGLIPTIN 5 MG TABLET PO SCH (08:18)
[2022-09-02] MEDS: GLIMEPIRIDE 4 MG TABLET PO SCH (08:18)
[2022-09-02] MEDS: ASPIRIN EC 81 MG TABLET.DR PO SCH (08:18)
[2022-09-02] MEDS: CARVEDILOL 6.25 MG TABLET PO SCH ×2 (08:18→17:04)
[2022-09-02] MEDS: CEFEPIME 1 GM in IV D5W 50 ML IV SCH (08:21)
[2022-09-02] MEDS: NIFEdipine XL (30MG) 30 MG TAB PO SCH (08:57)
[2022-09-02] MEDS: POVIDONE-IODINE OINT 28.4 GM TUBE TP SCH ×2 (09:20→17:10)
[2022-09-02] MEDS: FLUOCINONIDE 0.05% CREAM 60 GM TUBE TP SCH ×2 (09:20→17:10)
[2022-09-02] MEDS: METOLAZONE 2.5 MG TABLET PO SCH (10:23)
--- NOTE | 2022-09-02 10:39 | NUR ---
RN NOTE RECEIVED PATIENT IN BED RESTING ALERT ORIENTEDX4 VERBALLY RESPONSIVE ON ROOM AIR,O2:96% IV ACCESS ON RIGHT FOREARM INTACT PATENT,AMBULATORY WITH CANE,CONTINET BOWEL/BLADDER SAFETY MEASURE IMPLEMENT BED IN LOW POSITION AND LOCKED,CALL LIGHT WITHIN REACH,CONTINUE TO MONITOR.
[2022-09-02 12:00] VITALS: BP 154/83
[2022-09-02 16:00] VITALS: BP 117/68
[2022-09-02] MEDS: ATORVASTATIN 10 MG TABLET PO SCH (17:04)
--- NOTE | 2022-09-02 18:24 | NUR ---
RN NOTE PATIENT REMAINS ALERT ORIENTED X4 VERBALLY RESPONSIVE NO SOB NOT ACUTE DISTRESS NOTED,ON ROOM AIR O2:99%,AMBULATORY,CONTIENT BOWEL/BLADER,WOUND TREATMENT DONE,ALL DUE MEDS GIVEN MD ORDERED ALL NEEDS MET ENDORSE NEXT COMING SHIFT FOR CONTINUATION CARE.
--- NOTE | 2022-09-02 19:48 | NUR ---
DESKTOP PUBLISHING SPECIALIST OPENING NOTES: RECEIVED PATIENT AWAKE IN BED, BED IN LOW POSITION CALL LIGHTS WITHIN REACH, NO COMPLAIN OF PAIN AND DISCOMFORT AT THIS TIME, ON ROOM AIR SATURATING WELL PATIENT IS A/O X4 URDU SPEAKING COVID POSITIVE ON ROOM AIR NO SOB WAS OBSERVED, IV LINE AT RFA#20 SL, REMIND PATIENT TO USE CALL LIGHTS WHEN NEEDED ASSISTANCE, PATIENT KEPT CLEAN AND DRY ALL NEEDS MET WILL CONTINUE TO MONITOR.
[2022-09-02 20:00] VITALS: BP 125/73
[2022-09-02] MEDS: VANCOMYCIN 1 GM in IV D5W 250ml IV SCH (20:56)
[2022-09-02] MEDS: *INSULIN REGULAR(HUMULIN R)HUM 100 UNIT/ML VIAL SQ PRN (22:26)
[2022-09-02] MEDS: ACETAMINOPHEN 325 MG TABLET PO PRN (23:27)
[2022-09-03] VITALS: BP 127/65
[2022-09-03 04:00] VITALS: BP 125/57
--- NOTE | 2022-09-03 06:34 | NUR ---
AUTOCAD DETAILER CLOSING NOTES: PATIENT SLEEP IN BED AROUSABLE TO VERBAL STIMULI, BED IN LOW POSITION CALL LIGHTS WITHIN REACH, NO COMPLAIN OF PAIN AND DISCOMFORT AT THIS TIME, ON ROOM AIR SATURATING WELL, PATIENT IS A/O X4 ABLE TO MAKE NEEDS KNOWN, AMBULATORY, GRENADIAN SPEAKING, ON TELE MONITOR- [id number], KEPT CLEAN AND DRY ALL NEEDS MET ENDORSE TO INCOMING SHIFT.
[2022-09-03] MEDS: BLOOD SUGAR DIAGNOSTIC 1 EACH STRIP VI SCH ×2 (06:56→12:03)
--- NOTE | 2022-09-03 07:30 | NUR ---
OPENING NOTE RECEIVED PATIENT IN BED ASLEEP BUT AROUSABLE, NO SIGNS OF IN DISTRESS, UNLABORED BREATHING ON ROOM AIR, NO COMPLAINT OF PAIN, SAFETY MEASURES ARE IN PLACE, BED IN LOW POSITION LOCKED, SIDE RAILS UPX3, CALL LIGHT WITHIN REACH.
[2022-09-03 07:37] LABS: BASOPHILS # (AUTO) 0.1 K/uL (0.0-0.2); BASOPHILS % (AUTO) 1.1 % (0.0-2.0); EOSINOPHILS % (AUTO) 3.8 % (0.0-6.0); HEMATOCRIT 28 % (33-45); HEMOGLOBIN 9.4 g/dL (11.5-14.8); LYMPHOCYTES # (AUTO) 2.5 K/uL (0.8-4.8); LYMPHOCYTES % (AUTO) 33.6 % (20.0-44.0); MEAN CORPUSCULAR HGB CONC 33 g/dl (31.0-36.0); MEAN CORPUSCULAR VOLUME 87 fL (82-100); MONOCYTES # (AUTO) 0.6 K/uL (0.1-1.30); MONOCYTES % (AUTO) 8.6 % (2.0-12.0); NEUTROPHILS # (AUTO) 3.9 K/uL (1.8-8.9); NEUTROPHILS % (AUTO) 52.9 % (43.0-81.0); PLATELET COUNT (AUTO) 394 K/uL (150-450); RED BLOOD CELL COUNT(AUTO) 3.24 MIL/uL (4.0-5.2); WHITE BLOOD COUNT (AUTO) 7.4 K/uL (4.3-11.0)
[2022-09-03 08:00] VITALS: BP 138/74
[2022-09-03] MEDS: FUROSEMIDE 40 MG/4 ML VIAL IV SCH (08:04)
[2022-09-03] MEDS: CEFEPIME 1 GM in IV D5W 50 ML IV SCH (08:05)
[2022-09-03 08:08] LABS: CALCIUM, SERUM 8.8 mg/dL (8.5-10.1); CREATININE 2.7 mg/dL (0.6-1.3); POTASSIUM 3.7 mmol/L (3.5-5.1)
[2022-09-03] MEDS: ASPIRIN EC 81 MG TABLET.DR PO SCH (08:23)
[2022-09-03] MEDS: LINAGLIPTIN 5 MG TABLET PO SCH (08:23)
[2022-09-03] MEDS: METOLAZONE 2.5 MG TABLET PO SCH (08:23)
[2022-09-03] MEDS: NIFEdipine XL (30MG) 30 MG TAB PO SCH (08:24)
[2022-09-03] MEDS: CARVEDILOL 6.25 MG TABLET PO SCH (08:24)
[2022-09-03] MEDS: POVIDONE-IODINE OINT 28.4 GM TUBE TP SCH (08:25)
[2022-09-03] MEDS: FLUOCINONIDE 0.05% CREAM 60 GM TUBE TP SCH (08:25)
[2022-09-03] MEDS: GLIMEPIRIDE 4 MG TABLET PO SCH (08:27)
[2022-09-03 12:00] VITALS: BP 122/72
[2022-09-03] MEDS ORDERED: NIFE-35 PO (12:18)
[2022-09-03] MEDS ORDERED: CEFD300C3 PO (12:18)
[2022-09-03] MEDS ORDERED: LINA5TAB PO (12:18)
[2022-09-03] MEDS ORDERED: CARV6.252 PO (12:18)
[2022-09-03] MEDS ORDERED: FURO-144 PO (12:19)
--- NOTE | 2022-09-03 15:15 | NUR ---
PATIENT DISCHARGED TO HOME IN STABLE CONDITION WITH THE DAUGHTER. IV LINE WAS DISCONTINUED. DISCHARGE PACKET GIVEN TO THE PATIENT.
== END 2022-09-03 15:15 | disposition home or self-care (01) | DRG 383 ==
LOC: ER 17:42 → TELE1 22:57
PROVIDERS: ADMIT Internal Medicine; ATTEND Internal Medicine
DX: L03.115 Cellulitis of right lower limb (principal); N17.0 Acute kidney failure with tubular necrosis; U07.1 COVID-19; L97.319 Non-pressure chronic ulcer of right ankle with unspecified severity; D63.1 Anemia in chronic kidney disease; I50.9 Heart failure, unspecified; E11.22 Type 2 diabetes mellitus with diabetic chronic kidney disease; I12.9 Hypertensive chronic kidney disease with stage 1 through stage 4 chronic kidney disease, or unspecified chronic kidney disease; E11.9 Type 2 diabetes mellitus without complications; N18.9 Chronic kidney disease, unspecified; I87.8 Other specified disorders of veins; E66.9 Obesity, unspecified; Z68.42 Body mass index [BMI] 45.0-49.9, adult; L29.8 Other pruritus; Z79.84 Long term (current) use of oral hypoglycemic drugs; E78.5 Hyperlipidemia, unspecified; Z79.899 Other long term (current) drug therapy
CPT/HCPCS: 36415; 71045-TC; 76770-TC; 80048-TC; 80076-TC; 81001; 82962-TC; 83540-TC; 83605-TC; 83880; 84443-TC; 84484-TC; 84703-TC; 85025-TC; 87040-TC; 93307-TC; 93970-TC; A4223; C9803; G0378; J0692; J1815; J1940; J3370; J7050; J7060

== ENCOUNTER 2023-01-30 13:38 | Inpatient (IN) | payer MEDICAID ==
[~2023-01-30] VITALS: Ht 157.5 cm; Wt 108.4 kg
[~2023-01-30 13:38] MED LIST changes: +ASPI-1420 PO; +ATOR10TA PO; +CARV6.252 PO; +CEFD300C3 PO; -CLIN300C12 PO; +FURO-144 PO; -FURO-145 PO; +GLIM4TAB37 PO; +INSU100I4 SQ; +LINA5TAB PO; -METF-440 PO; +NIFE-35 PO; -POTA-58 PO
[2023-01-30] MEDS ORDERED: ACETAMINOPHEN 325 MG TABLET PO ONE (14:30)
[2023-01-30] MEDS ORDERED: FUROSEMIDE 40 MG/4 ML VIAL IV ONE (14:30)
[2023-01-30] MEDS ORDERED: ACETAMINOPHEN 325 MG TABLET ONE (14:34)
[2023-01-30] MEDS ORDERED: FUROSEMIDE 20 MG/2 ML VIAL ONE (14:48)
[2023-01-30 14:54] LABS: BASOPHILS # (AUTO) 0.1 K/uL (0.0-0.2); BASOPHILS % (AUTO) 1.5 % (0.0-2.0); EOSINOPHILS # (AUTO) 0.1 K/uL (0.0-0.7); EOSINOPHILS % (AUTO) 2.1 % (0.0-6.0); HEMATOCRIT 28 % (33-45); HEMOGLOBIN 8.9 g/dL (11.5-14.8); LYMPHOCYTES # (AUTO) 1.7 K/uL (0.8-4.8); LYMPHOCYTES % (AUTO) 29.4 % (20.0-44.0); MEAN CORPUSCULAR HEMOGLOBIN 29 PG (26.0-33.0); MEAN CORPUSCULAR HGB CONC 32 g/dl (31.0-36.0); MEAN CORPUSCULAR VOLUME 90 fL (82-100); MONOCYTES # (AUTO) 0.6 K/uL (0.1-1.30); MONOCYTES % (AUTO) 9.5 % (2.0-12.0); NEUTROPHILS # (AUTO) 3.3 K/uL (1.8-8.9); NEUTROPHILS % (AUTO) 57.5 % (43.0-81.0); PLATELET COUNT (AUTO) 358 K/uL (150-450); RED BLOOD CELL COUNT(AUTO) 3.13 MIL/uL (4.0-5.2); RED CELL DISTRIBUTION WIDTH 15.5 % (11.5-15.0); WHITE BLOOD COUNT (AUTO) 5.8 K/uL (4.3-11.0)
[2023-01-30] MEDS ORDERED: INSU100I4 SQ (15:05)
[2023-01-30] MEDS ORDERED: NIFE60TA72 PO (15:05)
[2023-01-30] MEDS ORDERED: LISI20TA30 PO (15:05)
[2023-01-30] MEDS ORDERED: METF-440 PO (15:05)
[2023-01-30] MEDS ORDERED: BLOO-668 IN (15:05)
[2023-01-30 15:13] LABS: CALCIUM, SERUM 8.4 mg/dL (8.5-10.1); CARBON DIOXIDE 21 mmol/L (21-32); CHLORIDE 112 mmol/L (98-107); CREATININE 4.6 mg/dL (0.6-1.3); GLUCOSE 100 mg/dL (74-106); POTASSIUM 4.9 mmol/L (3.5-5.1); SODIUM SERUM 140 mmol/L (136-145); UREA NITROGEN, BLOOD 36 mg/dL (7-18)
[2023-01-30 15:17] LABS: INR 0.96 (0.91-1.10); PARTIAL THROMBOPLASTIN TIME 31.5 SEC (24.3-34.3); PROTHROMBIN TIME 10.2 SECS (9.2-11.1)
[2023-01-30 15:19] LABS: ALANINE AMINOTRANSFERASE 27 U/L (12-78); ALKALINE PHOSPHATASE 130 U/L (46-116); ASPARTATE AMINOTRANSFERASE 27 U/L (15-37); BILIRUBIN,DIRECT 0.1 mg/dL (0.0-0.2); BILIRUBIN,TOTAL 0.3 mg/dL (0.2-1.0); TOTAL PROTEIN, SERUM 7.1 g/dL (6.4-8.2)
[2023-01-30 15:21] LABS: ALBUMIN 1.3 g/dL (3.4-5.0)
[2023-01-30 20:00] VITALS: BP 169/81; TEMP 97.5; O2SAT 99
[2023-01-30] MEDS ORDERED: METOLAZONE 2.5 MG TABLET PO SCH (20:30)
[2023-01-30] MEDS ORDERED: ACETAMINOPHEN 650 MG/20.3 ML UDC NG PRN (20:30)
[2023-01-30] MEDS ORDERED: AMLODIPINE BESYLATE 5 MG TABLET PO SCH (20:30)
[2023-01-30] MEDS ORDERED: DEXTROSE 50%-WATER 50 ML DISP.SYRIN IV PRN (20:33)
[2023-01-30] MEDS: ATORVASTATIN 10 MG TABLET PO SCH (21:16)
[2023-01-30] MEDS: BLOOD SUGAR DIAGNOSTIC 1 EACH STRIP VI SCH (21:20)
[2023-01-30] MEDS: *INSULIN REGULAR(HUMULIN R)HUM 100 UNIT/ML VIAL SQ PRN (21:21)
[2023-01-31] VITALS (24 sets, daily range): BP systolic 99–175; BP diastolic 54–131; TEMP 97.5–97.9; O2SAT 93–100
[2023-01-31] MEDS ORDERED: AMLODIPINE BESYLATE 5 MG TABLET PO ONE (05:00)
[2023-01-31] MEDS: BLOOD SUGAR DIAGNOSTIC 1 EACH STRIP VI SCH ×4 (06:48→21:35)
[2023-01-31] MEDS: INSULIN REGULAR, HUMAN 100 UNIT/ML 3 ML VIAL SQ PRN ×2 (06:48→18:17)
[2023-01-31] MEDS ORDERED: FUROSEMIDE 20 MG/2 ML VIAL IV SCH (09:00)
[2023-01-31] MEDS ORDERED: BUMETANIDE INJ 8 MG in IV NS 0.9% 48 ML IV ONE (09:00)
[2023-01-31] MEDS ORDERED: hydrALAZINE HCL 50 MG TABLET PO SCH (09:00)
[2023-01-31] MEDS: CARVEDILOL 6.25 MG TABLET PO SCH ×2 (09:41→17:00)
[2023-01-31] MEDS: ASPIRIN EC 81 MG TABLET.DR PO SCH (09:41)
[2023-01-31] MEDS: NITROGLYCERIN 30 GM TUBE TP SCH ×2 (09:42→21:24)
[2023-01-31 10:19] LABS: THYROID STIMULATING HORMONE 4.479 uIU/mL (0.358-3.74)
[2023-01-31 11:04] LABS: CALCIUM, SERUM 8.2 mg/dL (8.5-10.1); CREATININE 4.6 mg/dL (0.6-1.3); POTASSIUM 4.8 mmol/L (3.5-5.1)
[2023-01-31] MEDS ORDERED: EPINEPHRINE (1:10,000) SYRINGE 1 MG/10 ML DISP.SYRIN IVP ONE (14:17)
[2023-01-31 15:28] LABS: ABG BASE EXCESS -9.7 mmol/L; ABG OXYGEN SATURATION 99.6 % (92.0-98.5); ABG PH 7.299 (7.350-7.450); ABG PO2 412.3 mmHg (75.0-100.0); ABG TOTAL HEMOGLOBIN 8.7 G/dL (12.0-16.0); COHb 0.3 % (0.5-1.5); O2Hb 99.3 % (94.0-97.0); SITE, ABG Right Radial
[2023-01-31] MEDS: PROPOFOL 100 ML IV PRN ×2 (15:28→22:13)
[2023-01-31 17:25] LABS: BASOPHILS # (AUTO) 0.1 K/uL (0.0-0.2); BASOPHILS % (AUTO) 0.7 % (0.0-2.0); EOSINOPHILS % (AUTO) 0.3 % (0.0-6.0); HEMATOCRIT 27 % (33-45); HEMOGLOBIN 8.4 g/dL (11.5-14.8); LYMPHOCYTES # (AUTO) 0.6 K/uL (0.8-4.8); LYMPHOCYTES % (AUTO) 7.3 % (20.0-44.0); MEAN CORPUSCULAR HEMOGLOBIN 29 PG (26.0-33.0); MEAN CORPUSCULAR HGB CONC 31 g/dl (31.0-36.0); MEAN CORPUSCULAR VOLUME 91 fL (82-100); MONOCYTES # (AUTO) 0.4 K/uL (0.1-1.30); NEUTROPHILS # (AUTO) 7.4 K/uL (1.8-8.9); NEUTROPHILS % (AUTO) 86.7 % (43.0-81.0); PLATELET COUNT (AUTO) 300 K/uL (150-450); RED BLOOD CELL COUNT(AUTO) 2.92 MIL/uL (4.0-5.2); RED CELL DISTRIBUTION WIDTH 15.5 % (11.5-15.0); WHITE BLOOD COUNT (AUTO) 8.5 K/uL (4.3-11.0)
[2023-01-31 17:50] LABS: BILIRUBIN,TOTAL 0.4 mg/dL (0.2-1.0); CALCIUM, SERUM 8.3 mg/dL (8.5-10.1); CREATININE 4.8 mg/dL (0.6-1.3); MAGNESIUM 1.9 mg/dL (1.8-2.4); PHOSPHORUS 5.3 mg/dL (2.5-4.9); POTASSIUM 5.1 mmol/L (3.5-5.1); TOTAL PROTEIN, SERUM 6.1 g/dL (6.4-8.2)
[2023-01-31 17:54] LABS: ALBUMIN 1.2 g/dL (3.4-5.0)
[2023-01-31] MEDS: HEPARIN SODIUM, PORCINE 5000 UNITS/1 ML VIAL SQ SCH (21:25)
[2023-01-31] MEDS: ATORVASTATIN 10 MG TABLET PO SCH (21:25)
[2023-02-01] VITALS (24 sets, daily range): BP systolic 119–169; BP diastolic 67–90; TEMP 97.1–98; O2SAT 100
[2023-02-01 03:55] LABS: BASOPHILS % (AUTO) 0.4 % (0.0-2.0); EOSINOPHILS % (AUTO) 0.3 % (0.0-6.0); HEMATOCRIT 23 % (33-45); HEMOGLOBIN 7.5 g/dL (11.5-14.8); LYMPHOCYTES # (AUTO) 1.5 K/uL (0.8-4.8); LYMPHOCYTES % (AUTO) 15.5 % (20.0-44.0); MEAN CORPUSCULAR HEMOGLOBIN 29 PG (26.0-33.0); MEAN CORPUSCULAR HGB CONC 33 g/dl (31.0-36.0); MEAN CORPUSCULAR VOLUME 88 fL (82-100); MONOCYTES # (AUTO) 0.6 K/uL (0.1-1.30); MONOCYTES % (AUTO) 5.8 % (2.0-12.0); NEUTROPHILS # (AUTO) 7.5 K/uL (1.8-8.9); PLATELET COUNT (AUTO) 251 K/uL (150-450); WHITE BLOOD COUNT (AUTO) 9.6 K/uL (4.3-11.0)
[2023-02-01 04:11] LABS: INR 0.98 (0.91-1.10); PARTIAL THROMBOPLASTIN TIME 26.4 SEC (24.3-34.3); PROTHROMBIN TIME 10.4 SECS (9.2-11.1)
[2023-02-01] MEDS: PROPOFOL 100 ML IV PRN ×6 (04:11→22:55)
[2023-02-01 04:20] LABS: BILIRUBIN,TOTAL 0.4 mg/dL (0.2-1.0); CALCIUM, SERUM 8.2 mg/dL (8.5-10.1); CREATININE 2.9 mg/dL (0.6-1.3); MAGNESIUM 1.7 mg/dL (1.8-2.4); POTASSIUM 3.4 mmol/L (3.5-5.1); TOTAL PROTEIN, SERUM 5.3 g/dL (6.4-8.2)
[2023-02-01] MEDS: BLOOD SUGAR DIAGNOSTIC 1 EACH STRIP VI SCH ×4 (07:52→21:37)
[2023-02-01] MEDS: INSULIN REGULAR, HUMAN 100 UNIT/ML 3 ML VIAL SQ PRN ×3 (07:53→18:27)
[2023-02-01 08:07] LABS: COMPLEMENT C3, SERUM 144 mg/dL (82-167); COMPLEMENT C4, SERUM 39 mg/dL (12-38)
[2023-02-01] MEDS: CARVEDILOL 6.25 MG TABLET PO SCH ×2 (09:00→17:00)
[2023-02-01] MEDS: LINAGLIPTIN 5 MG TABLET PO SCH (09:00)
[2023-02-01] MEDS: ASPIRIN EC 81 MG TABLET.DR PO SCH (09:00)
[2023-02-01] MEDS: AMLODIPINE BESYLATE 5 MG TABLET PO SCH ×2 (09:00→17:00)
[2023-02-01] MEDS: HEPARIN SODIUM, PORCINE 5000 UNITS/1 ML VIAL SQ SCH ×2 (09:00→21:37)
[2023-02-01] MEDS: NITROGLYCERIN 30 GM TUBE TP SCH ×2 (09:10→21:34)
[2023-02-01 11:07] LABS: *SPE A/G RATIO 0.4 (0.7-1.7); *SPE ALBUMIN 1.6 g/dL (2.9-4.4); *SPE ALPHA-1-GLOBULIN 0.3 g/dL (0.0-0.4); *SPE BETA GLOBULIN 1.3 g/dL (0.7-1.3); *SPE GLOBULIN, TOTAL 3.8 g/dL (2.2-3.9); *SPE M-SPIKE Not Observed g/dL (Not Observed); *SPE PROTEIN TOTAL 5.4 g/dL (6.0-8.5); *SPEGAMMA GLOBULIN 1.3 g/dL (0.4-1.8)
[2023-02-01 12:06] LABS: HEMOGLOBIN 7.7 g/dL (11.5-14.8)
[2023-02-01 13:07] LABS: HEPATITIS B SURFACE AB Non Reactive (.)
[2023-02-01 14:07] LABS: *ANA ANTI-CENTROMERE B AB <0.2 AI (0.0-0.9); *ANA ANTI-DNA(DS) AB, QN 7 IU/mL (0-9); *ANA ANTI-JO-1 <0.2 AI (0.0-0.9); *ANA ANTICHROMATIN ANTIBODY <0.2 AI (0.0-0.9); *ANA RNP ANTIBODIES <0.2 AI (0.0-0.9); *ANA SJOGREN'S ANTI-SS-A <0.2 AI (0.0-0.9); *ANA SJOGREN'S ANTI-SS-B <0.2 AI (0.0-0.9); *ANAANTI-SCLERODERMA-70 AB <0.2 AI (0.0-0.9); *ANASMITH AB <0.2 AI (0.0-0.9)
[2023-02-01] MEDS ORDERED: hydrALAZINE HCL IV 20 MG VIAL IV PRN (17:30)
[2023-02-01] MEDS: ATORVASTATIN 10 MG TABLET PO SCH (21:34)
[2023-02-02] VITALS (24 sets, daily range): BP systolic 121–158; BP diastolic 59–93; TEMP 97.5–98.8; O2SAT 95–100
[2023-02-02 03:07] LABS: HBSAG SCREEN Negative (Negative); HEPATITIS A AB, IgM Negative (Negative); HEPATITIS B CORE AB, IgM Negative (Negative)
[2023-02-02] MEDS: PROPOFOL 100 ML IV PRN ×2 (03:13→06:25)
[2023-02-02 04:43] LABS: BASOPHILS # (AUTO) 0.1 K/uL (0.0-0.2); BASOPHILS % (AUTO) 0.7 % (0.0-2.0); EOSINOPHILS # (AUTO) 0.2 K/uL (0.0-0.7); EOSINOPHILS % (AUTO) 2.1 % (0.0-6.0); HEMATOCRIT 25 % (33-45); HEMOGLOBIN 8.1 g/dL (11.5-14.8); LYMPHOCYTES # (AUTO) 1.7 K/uL (0.8-4.8); LYMPHOCYTES % (AUTO) 19.2 % (20.0-44.0); MEAN CORPUSCULAR HEMOGLOBIN 29 PG (26.0-33.0); MEAN CORPUSCULAR HGB CONC 32 g/dl (31.0-36.0); MEAN CORPUSCULAR VOLUME 89 fL (82-100); MONOCYTES # (AUTO) 0.7 K/uL (0.1-1.30); MONOCYTES % (AUTO) 7.7 % (2.0-12.0); NEUTROPHILS # (AUTO) 6.1 K/uL (1.8-8.9); NEUTROPHILS % (AUTO) 70.3 % (43.0-81.0); PLATELET COUNT (AUTO) 242 K/uL (150-450); RED BLOOD CELL COUNT(AUTO) 2.82 MIL/uL (4.0-5.2); RED CELL DISTRIBUTION WIDTH 15.2 % (11.5-15.0); WHITE BLOOD COUNT (AUTO) 8.7 K/uL (4.3-11.0)
[2023-02-02 05:52] LABS: CREATININE 3.6 mg/dL (0.6-1.3); MAGNESIUM 1.8 mg/dL (1.8-2.4); POTASSIUM 3.6 mmol/L (3.5-5.1)
[2023-02-02] MEDS: BLOOD SUGAR DIAGNOSTIC 1 EACH STRIP VI SCH ×4 (08:19→21:59)
[2023-02-02] MEDS: INSULIN REGULAR, HUMAN 100 UNIT/ML 3 ML VIAL SQ PRN ×2 (08:20→12:54)
[2023-02-02] MEDS: LINAGLIPTIN 5 MG TABLET PO SCH (09:00)
[2023-02-02] MEDS: AMLODIPINE BESYLATE 5 MG TABLET PO SCH ×2 (09:00→17:00)
[2023-02-02] MEDS: ASPIRIN EC 81 MG TABLET.DR PO SCH (09:23)
[2023-02-02] MEDS: CARVEDILOL 6.25 MG TABLET PO SCH ×2 (09:25→17:10)
[2023-02-02] MEDS: HEPARIN SODIUM, PORCINE 5000 UNITS/1 ML VIAL SQ SCH ×2 (09:28→21:38)
[2023-02-02] MEDS: NITROGLYCERIN 30 GM TUBE TP SCH ×2 (09:29→21:39)
[2023-02-02 14:50] LABS: ABG OXYGEN SATURATION 98.8 % (92.0-98.5); ABG PCO2 33.6 mmHg (35.0-45.0); ABG PH 7.521 (7.350-7.450); ABG TOTAL HEMOGLOBIN 9.1 G/dL (12.0-16.0); AaDO2 78.6 mmHg; COHb 0.3 % (0.5-1.5); MetHb 0.2 % (0.0-1.5); O2Hb 98.3 % (94.0-97.0); SITE, ABG Right Radial; VENT MODE, BG SIMV 4 525 40% +5 PS 15
[2023-02-02] MEDS ORDERED: DC PROPOFOL WHEN EXTUBATED XX PRN (14:50)
[2023-02-02] MEDS: ATORVASTATIN 10 MG TABLET PO SCH (21:39)
[2023-02-02] MEDS: HYDROCODONE/APAP 5/325MG TABLET PO PRN (22:00)
[2023-02-03] VITALS (24 sets, daily range): BP systolic 86–146; BP diastolic 53–113; TEMP 97.7–98; O2SAT 96–100
[2023-02-03 04:23] LABS: CALCIUM, SERUM 7.8 mg/dL (8.5-10.1); POTASSIUM 3.1 mmol/L (3.5-5.1)
[2023-02-03 04:38] LABS: BASOPHILS # (AUTO) 0.1 K/uL (0.0-0.2); BASOPHILS % (AUTO) 0.5 % (0.0-2.0); EOSINOPHILS # (AUTO) 0.2 K/uL (0.0-0.7); EOSINOPHILS % (AUTO) 1.8 % (0.0-6.0); HEMATOCRIT 24 % (33-45); HEMOGLOBIN 7.6 g/dL (11.5-14.8); LYMPHOCYTES # (AUTO) 2.1 K/uL (0.8-4.8); LYMPHOCYTES % (AUTO) 17.7 % (20.0-44.0); MEAN CORPUSCULAR HEMOGLOBIN 28 PG (26.0-33.0); MEAN CORPUSCULAR HGB CONC 32 g/dl (31.0-36.0); MEAN CORPUSCULAR VOLUME 89 fL (82-100); MONOCYTES # (AUTO) 1.2 K/uL (0.1-1.30); MONOCYTES % (AUTO) 9.6 % (2.0-12.0); NEUTROPHILS # (AUTO) 8.5 K/uL (1.8-8.9); NEUTROPHILS % (AUTO) 70.4 % (43.0-81.0); PLATELET COUNT (AUTO) 248 K/uL (150-450); RED CELL DISTRIBUTION WIDTH 15.2 % (11.5-15.0); WHITE BLOOD COUNT (AUTO) 12.1 K/uL (4.3-11.0)
[2023-02-03 05:05] LABS: ANISOCYTOSIS 1+; BAND % (MANUAL) 1 % (0.0-5.0); LYMPHOCYTES % (MANUAL) 17 % (16-48); MONOCYTES % (MANUAL) 7 % (0-11.0); NEUTROPHILS % (MANUAL) 75 (42-76); PLATELET ESTIMATE ADEQUATE
[2023-02-03 05:06] LABS: OVALOCYTES 1+
[2023-02-03] MEDS: HYDROCODONE/APAP 5/325MG TABLET PO PRN ×5 (06:23→22:21)
[2023-02-03] MEDS: BLOOD SUGAR DIAGNOSTIC 1 EACH STRIP VI SCH ×4 (07:37→22:17)
[2023-02-03] MEDS: INSULIN REGULAR, HUMAN 100 UNIT/ML 3 ML VIAL SQ PRN ×3 (07:39→18:05)
[2023-02-03] MEDS: ASPIRIN EC 81 MG TABLET.DR PO SCH (08:48)
[2023-02-03] MEDS: LINAGLIPTIN 5 MG TABLET PO SCH (08:48)
[2023-02-03] MEDS: HEPARIN SODIUM, PORCINE 5000 UNITS/1 ML VIAL SQ SCH ×2 (08:50→21:20)
[2023-02-03] MEDS ORDERED: POTASSIUM CHLORIDE 20 MEQ TAB.PRT.SR PO ONE (09:00)
[2023-02-03] MEDS: NITROGLYCERIN 30 GM TUBE TP SCH ×2 (11:58→21:23)
[2023-02-03] MEDS: AMLODIPINE BESYLATE 5 MG TABLET PO SCH ×2 (11:58→17:42)
[2023-02-03] MEDS: CARVEDILOL 6.25 MG TABLET PO SCH ×2 (11:58→17:42)
[2023-02-03] MEDS: PIPERACILLIN /TAZOBACTAM 2.25 G in IV D5W 50 ML IV SCH ×3 (11:59→21:18)
[2023-02-03] MEDS: SOD FERRIC GLUC 125 MG in IV NS 0.9% 100 ML IV SCH (14:19)
[2023-02-03] MEDS: ATORVASTATIN 10 MG TABLET PO SCH (21:23)
[2023-02-04] VITALS (18 sets, daily range): BP systolic 98–167; BP diastolic 52–83; TEMP 97.8–99.1; O2SAT 90–100
[2023-02-04 04:59] LABS: BASOPHILS # (AUTO) 0.1 K/uL (0.0-0.2); BASOPHILS % (AUTO) 0.7 % (0.0-2.0); EOSINOPHILS # (AUTO) 0.2 K/uL (0.0-0.7); EOSINOPHILS % (AUTO) 3.5 % (0.0-6.0); HEMATOCRIT 23 % (33-45); HEMOGLOBIN 7.3 g/dL (11.5-14.8); LYMPHOCYTES # (AUTO) 1.1 K/uL (0.8-4.8); LYMPHOCYTES % (AUTO) 16.2 % (20.0-44.0); MEAN CORPUSCULAR HEMOGLOBIN 29 PG (26.0-33.0); MEAN CORPUSCULAR HGB CONC 32 g/dl (31.0-36.0); MEAN CORPUSCULAR VOLUME 89 fL (82-100); MONOCYTES # (AUTO) 0.9 K/uL (0.1-1.30); MONOCYTES % (AUTO) 12.7 % (2.0-12.0); NEUTROPHILS # (AUTO) 4.7 K/uL (1.8-8.9); NEUTROPHILS % (AUTO) 66.9 % (43.0-81.0); PLATELET COUNT (AUTO) 198 K/uL (150-450); RED BLOOD CELL COUNT(AUTO) 2.56 MIL/uL (4.0-5.2); WHITE BLOOD COUNT (AUTO) 7.1 K/uL (4.3-11.0)
[2023-02-04 05:06] LABS: CALCIUM, SERUM 7.7 mg/dL (8.5-10.1); CREATININE 2.9 mg/dL (0.6-1.3)
[2023-02-04] MEDS: PIPERACILLIN /TAZOBACTAM 2.25 G in IV D5W 50 ML IV SCH ×3 (05:16→20:23)
[2023-02-04] MEDS: BLOOD SUGAR DIAGNOSTIC 1 EACH STRIP VI SCH ×4 (06:03→21:41)
[2023-02-04] MEDS: AMLODIPINE BESYLATE 5 MG TABLET PO SCH ×2 (08:30→08:58)
[2023-02-04] MEDS: ASPIRIN EC 81 MG TABLET.DR PO SCH (08:53)
[2023-02-04] MEDS: LINAGLIPTIN 5 MG TABLET PO SCH (08:53)
[2023-02-04] MEDS: CARVEDILOL 6.25 MG TABLET PO SCH ×2 (08:57→17:42)
[2023-02-04] MEDS: HEPARIN SODIUM, PORCINE 5000 UNITS/1 ML VIAL SQ SCH ×2 (09:13→20:27)
[2023-02-04] MEDS: SOD FERRIC GLUC 125 MG in IV NS 0.9% 100 ML IV SCH (13:32)
[2023-02-04] MEDS: HYDROCODONE/APAP 5/325MG TABLET PO PRN (17:51)
[2023-02-04] MEDS: ATORVASTATIN 10 MG TABLET PO SCH (21:23)
[2023-02-05] MEDS: PIPERACILLIN /TAZOBACTAM 2.25 G in IV D5W 50 ML IV SCH ×3 (04:30→21:39)
[2023-02-05] MEDS: BLOOD SUGAR DIAGNOSTIC 1 EACH STRIP VI SCH ×4 (06:02→22:35)
[2023-02-05 06:31] VITALS: BP 110/52; TEMP 99.1; O2SAT 100
[2023-02-05 06:59] LABS: BASOPHILS # (AUTO) 0.1 K/uL (0.0-0.2); EOSINOPHILS # (AUTO) 0.1 K/uL (0.0-0.7); EOSINOPHILS % (AUTO) 2.5 % (0.0-6.0); HEMATOCRIT 25 % (33-45); HEMOGLOBIN 7.6 g/dL (11.5-14.8); LYMPHOCYTES # (AUTO) 1.2 K/uL (0.8-4.8); LYMPHOCYTES % (AUTO) 20.5 % (20.0-44.0); MEAN CORPUSCULAR HEMOGLOBIN 28 PG (26.0-33.0); MEAN CORPUSCULAR HGB CONC 31 g/dl (31.0-36.0); MEAN CORPUSCULAR VOLUME 91 fL (82-100); MONOCYTES # (AUTO) 0.7 K/uL (0.1-1.30); MONOCYTES % (AUTO) 13.2 % (2.0-12.0); NEUTROPHILS # (AUTO) 3.5 K/uL (1.8-8.9); NEUTROPHILS % (AUTO) 62.8 % (43.0-81.0); PLATELET COUNT (AUTO) 217 K/uL (150-450); RED BLOOD CELL COUNT(AUTO) 2.72 MIL/uL (4.0-5.2); RED CELL DISTRIBUTION WIDTH 15.4 % (11.5-15.0); WHITE BLOOD COUNT (AUTO) 5.6 K/uL (4.3-11.0)
[2023-02-05 07:36] LABS: POTASSIUM 4.6 mmol/L (3.5-5.1)
[2023-02-05 08:00] VITALS: BP 111/57; TEMP 98.6; O2SAT 97
[2023-02-05] MEDS: ASPIRIN EC 81 MG TABLET.DR PO SCH (09:39)
[2023-02-05] MEDS: AMLODIPINE BESYLATE 5 MG TABLET PO SCH (09:39)
[2023-02-05] MEDS: LINAGLIPTIN 5 MG TABLET PO SCH (09:39)
[2023-02-05] MEDS: CARVEDILOL 6.25 MG TABLET PO SCH ×2 (09:40→18:00)
[2023-02-05] MEDS: HEPARIN SODIUM, PORCINE 5000 UNITS/1 ML VIAL SQ SCH ×2 (09:55→23:18)
[2023-02-05 11:29] LABS: PREGNANCY TEST URINE QUAL NEGATIVE (NEGATIVE)
[2023-02-05] MEDS: SOD FERRIC GLUC 125 MG in IV NS 0.9% 100 ML IV SCH (14:52)
[2023-02-05 16:00] VITALS: BP 135/67; TEMP 98.8; O2SAT 99
[2023-02-05] MEDS: HYDROCODONE/APAP 5/325MG TABLET PO PRN ×2 (16:57→22:19)
[2023-02-05 19:00] VITALS: BP 120/58; TEMP 97.8; O2SAT 98
[2023-02-05] MEDS: ATORVASTATIN 10 MG TABLET PO SCH (22:04)
[2023-02-05] MEDS: *INSULIN REGULAR(HUMULIN R)HUM 100 UNIT/ML VIAL SQ PRN (22:48)
[2023-02-06] MEDS: PIPERACILLIN /TAZOBACTAM 2.25 G in IV D5W 50 ML IV SCH ×3 (05:40→21:44)
[2023-02-06 06:19] LABS: BASOPHILS # (AUTO) 0.1 K/uL (0.0-0.2); EOSINOPHILS # (AUTO) 0.3 K/uL (0.0-0.7); EOSINOPHILS % (AUTO) 5.5 % (0.0-6.0); HEMATOCRIT 24 % (33-45); HEMOGLOBIN 7.5 g/dL (11.5-14.8); LYMPHOCYTES # (AUTO) 1.7 K/uL (0.8-4.8); LYMPHOCYTES % (AUTO) 27.2 % (20.0-44.0); MEAN CORPUSCULAR HEMOGLOBIN 28 PG (26.0-33.0); MEAN CORPUSCULAR HGB CONC 31 g/dl (31.0-36.0); MEAN CORPUSCULAR VOLUME 90 fL (82-100); MONOCYTES # (AUTO) 0.8 K/uL (0.1-1.30); NEUTROPHILS # (AUTO) 3.2 K/uL (1.8-8.9); NEUTROPHILS % (AUTO) 52.3 % (43.0-81.0); PLATELET COUNT (AUTO) 230 K/uL (150-450); RED BLOOD CELL COUNT(AUTO) 2.66 MIL/uL (4.0-5.2); RED CELL DISTRIBUTION WIDTH 14.8 % (11.5-15.0); WHITE BLOOD COUNT (AUTO) 6.1 K/uL (4.3-11.0)
[2023-02-06] MEDS: BLOOD SUGAR DIAGNOSTIC 1 EACH STRIP VI SCH ×4 (06:39→22:57)
[2023-02-06] MEDS: INSULIN REGULAR, HUMAN 100 UNIT/ML 3 ML VIAL SQ PRN ×2 (06:40→19:02)
[2023-02-06 07:23] LABS: BILIRUBIN,TOTAL 0.2 mg/dL (0.2-1.0); CALCIUM, SERUM 8.9 mg/dL (8.5-10.1); CREATININE 2.8 mg/dL (0.6-1.3); MAGNESIUM 1.9 mg/dL (1.8-2.4); PHOSPHORUS 3.6 mg/dL (2.5-4.9); TOTAL PROTEIN, SERUM 6.1 g/dL (6.4-8.2)
[2023-02-06 08:00] VITALS: BP 102/59; TEMP 98.1; O2SAT 100
[2023-02-06] MEDS: ASPIRIN EC 81 MG TABLET.DR PO SCH (08:15)
[2023-02-06] MEDS: HEPARIN SODIUM, PORCINE 5000 UNITS/1 ML VIAL SQ SCH ×2 (08:15→21:46)
[2023-02-06] MEDS: CARVEDILOL 6.25 MG TABLET PO SCH ×2 (08:41→16:47)
[2023-02-06] MEDS: AMLODIPINE BESYLATE 5 MG TABLET PO SCH (08:42)
[2023-02-06] MEDS: LINAGLIPTIN 5 MG TABLET PO SCH (09:17)
[2023-02-06] MEDS: HYDROCODONE/APAP 5/325MG TABLET PO PRN ×2 (11:05→16:04)
[2023-02-06 14:00] VITALS: BP 163/68; TEMP 98.6; O2SAT 97
[2023-02-06] MEDS: SOD FERRIC GLUC 125 MG in IV NS 0.9% 100 ML IV SCH (15:57)
[2023-02-06 20:00] VITALS: BP 133/81; TEMP 98.6; O2SAT 97
[2023-02-06] MEDS: ATORVASTATIN 10 MG TABLET PO SCH (21:44)
[2023-02-06] MEDS: *INSULIN REGULAR(HUMULIN R)HUM 100 UNIT/ML VIAL SQ PRN (22:58)
[2023-02-07] MEDS: PIPERACILLIN /TAZOBACTAM 2.25 G in IV D5W 50 ML IV SCH ×3 (05:12→23:53)
[2023-02-07 07:17] LABS: BASOPHILS # (AUTO) 0.1 K/uL (0.0-0.2); BASOPHILS % (AUTO) 1.3 % (0.0-2.0); EOSINOPHILS # (AUTO) 0.4 K/uL (0.0-0.7); EOSINOPHILS % (AUTO) 6.7 % (0.0-6.0); HEMATOCRIT 23 % (33-45); HEMOGLOBIN 7.4 g/dL (11.5-14.8); LYMPHOCYTES % (AUTO) 32.9 % (20.0-44.0); MEAN CORPUSCULAR HEMOGLOBIN 29 PG (26.0-33.0); MEAN CORPUSCULAR HGB CONC 32 g/dl (31.0-36.0); MEAN CORPUSCULAR VOLUME 90 fL (82-100); MONOCYTES # (AUTO) 1.1 K/uL (0.1-1.30); MONOCYTES % (AUTO) 18.4 % (2.0-12.0); NEUTROPHILS # (AUTO) 2.4 K/uL (1.8-8.9); NEUTROPHILS % (AUTO) 40.7 % (43.0-81.0); PLATELET COUNT (AUTO) 254 K/uL (150-450); RED CELL DISTRIBUTION WIDTH 14.8 % (11.5-15.0)
[2023-02-07 07:30] LABS: CALCIUM, SERUM 7.9 mg/dL (8.5-10.1); CREATININE 3.6 mg/dL (0.6-1.3); POTASSIUM 4.1 mmol/L (3.5-5.1)
[2023-02-07] MEDS: INSULIN REGULAR, HUMAN 100 UNIT/ML 3 ML VIAL SQ PRN ×3 (07:48→16:34)
[2023-02-07] MEDS: BLOOD SUGAR DIAGNOSTIC 1 EACH STRIP VI SCH ×4 (07:48→22:51)
[2023-02-07 08:00] VITALS: BP 116/60; TEMP 98.4; O2SAT 97
[2023-02-07] MEDS: CARVEDILOL 6.25 MG TABLET PO SCH ×2 (09:01→16:28)
[2023-02-07] MEDS: ASPIRIN EC 81 MG TABLET.DR PO SCH (09:01)
[2023-02-07] MEDS: LINAGLIPTIN 5 MG TABLET PO SCH (09:01)
[2023-02-07] MEDS: HEPARIN SODIUM, PORCINE 5000 UNITS/1 ML VIAL SQ SCH ×2 (09:02→20:14)
[2023-02-07] MEDS: SOD FERRIC GLUC 125 MG in IV NS 0.9% 100 ML IV SCH (13:54)
[2023-02-07 16:00] VITALS: BP 108/56; TEMP 99.3; O2SAT 96
[2023-02-07 19:21] LABS: INR 1.02 (0.91-1.10); PARTIAL THROMBOPLASTIN TIME 38.7 SEC (24.3-34.3); PROTHROMBIN TIME 10.8 SECS (9.2-11.1)
[2023-02-07 20:00] VITALS: BP 133/68; TEMP 98.1; O2SAT 98
[2023-02-07] MEDS: ATORVASTATIN 10 MG TABLET PO SCH (22:51)
[2023-02-07] MEDS: HYDROCODONE/APAP 5/325MG TABLET PO PRN (23:04)
[2023-02-08 06:00] LABS: BASOPHILS # (AUTO) 0.1 K/uL (0.0-0.2); BASOPHILS % (AUTO) 1.3 % (0.0-2.0); EOSINOPHILS # (AUTO) 0.4 K/uL (0.0-0.7); EOSINOPHILS % (AUTO) 7.7 % (0.0-6.0); HEMATOCRIT 25 % (33-45); HEMOGLOBIN 7.9 g/dL (11.5-14.8); LYMPHOCYTES # (AUTO) 1.8 K/uL (0.8-4.8); LYMPHOCYTES % (AUTO) 34.9 % (20.0-44.0); MEAN CORPUSCULAR HEMOGLOBIN 29 PG (26.0-33.0); MEAN CORPUSCULAR HGB CONC 32 g/dl (31.0-36.0); MEAN CORPUSCULAR VOLUME 91 fL (82-100); MONOCYTES # (AUTO) 0.9 K/uL (0.1-1.30); MONOCYTES % (AUTO) 18.3 % (2.0-12.0); NEUTROPHILS # (AUTO) 1.9 K/uL (1.8-8.9); NEUTROPHILS % (AUTO) 37.8 % (43.0-81.0); PLATELET COUNT (AUTO) 267 K/uL (150-450); RED BLOOD CELL COUNT(AUTO) 2.75 MIL/uL (4.0-5.2); RED CELL DISTRIBUTION WIDTH 14.9 % (11.5-15.0); WHITE BLOOD COUNT (AUTO) 5.1 K/uL (4.3-11.0)
[2023-02-08 06:22] LABS: BILIRUBIN,TOTAL 0.2 mg/dL (0.2-1.0); CALCIUM, SERUM 8.9 mg/dL (8.5-10.1); CREATININE 3.1 mg/dL (0.6-1.3); MAGNESIUM 2.1 mg/dL (1.8-2.4); PHOSPHORUS 3.3 mg/dL (2.5-4.9); POTASSIUM 4.1 mmol/L (3.5-5.1)
[2023-02-08] MEDS: BLOOD SUGAR DIAGNOSTIC 1 EACH STRIP VI SCH ×4 (06:35→22:25)
[2023-02-08 07:35] LABS: EOSINOPHILS % (MANUAL) 8 % (0-4); LYMPHOCYTES % (MANUAL) 39 % (16-48); MONOCYTES % (MANUAL) 15 % (0-11.0); NEUTROPHILS % (MANUAL) 38 (42-76); PLATELET ESTIMATE ADEQUATE
[2023-02-08] MEDS: PIPERACILLIN /TAZOBACTAM 2.25 G in IV D5W 50 ML IV SCH ×3 (07:52→23:50)
[2023-02-08 08:00] VITALS: BP 144/74; TEMP 97.7; O2SAT 97
[2023-02-08] MEDS: ASPIRIN EC 81 MG TABLET.DR PO SCH (08:03)
[2023-02-08] MEDS: CARVEDILOL 6.25 MG TABLET PO SCH ×2 (08:03→16:48)
[2023-02-08] MEDS: LINAGLIPTIN 5 MG TABLET PO SCH (08:04)
[2023-02-08] MEDS: INSULIN REGULAR, HUMAN 100 UNIT/ML 3 ML VIAL SQ PRN ×2 (11:42→16:53)
[2023-02-08 16:00] VITALS: BP 156/75; TEMP 97.5; O2SAT 95
[2023-02-08 16:13] LABS: BASOPHILS # (AUTO) 0.1 K/uL (0.0-0.2); BASOPHILS % (AUTO) 1.1 % (0.0-2.0); EOSINOPHILS # (AUTO) 0.4 K/uL (0.0-0.7); EOSINOPHILS % (AUTO) 7.6 % (0.0-6.0); HEMATOCRIT 25 % (33-45); HEMOGLOBIN 7.8 g/dL (11.5-14.8); LYMPHOCYTES % (AUTO) 35.2 % (20.0-44.0); MEAN CORPUSCULAR HEMOGLOBIN 28 PG (26.0-33.0); MEAN CORPUSCULAR HGB CONC 31 g/dl (31.0-36.0); MEAN CORPUSCULAR VOLUME 91 fL (82-100); NEUTROPHILS # (AUTO) 2.1 K/uL (1.8-8.9); NEUTROPHILS % (AUTO) 38.1 % (43.0-81.0); PLATELET COUNT (AUTO) 275 K/uL (150-450); RED BLOOD CELL COUNT(AUTO) 2.78 MIL/uL (4.0-5.2); RED CELL DISTRIBUTION WIDTH 15.1 % (11.5-15.0); WHITE BLOOD COUNT (AUTO) 5.6 K/uL (4.3-11.0)
[2023-02-08 16:46] LABS: EOSINOPHILS % (MANUAL) 4 % (0-4); LYMPHOCYTES % (MANUAL) 34 % (16-48); MONOCYTES % (MANUAL) 21 % (0-11.0); NEUTROPHILS % (MANUAL) 41 (42-76); PLATELET ESTIMATE ADEQUATE
[2023-02-08 20:00] VITALS: BP 128/65; TEMP 98.2; O2SAT 98
[2023-02-08] MEDS: ATORVASTATIN 10 MG TABLET PO SCH (22:15)
[2023-02-08] MEDS: *INSULIN REGULAR(HUMULIN R)HUM 100 UNIT/ML VIAL SQ PRN (22:25)
[2023-02-09] VITALS (11 sets, daily range): BP systolic 120–159; BP diastolic 59–80; TEMP 97.5–98.1; O2SAT 94–100
[2023-02-09 07:11] LABS: BASOPHILS # (AUTO) 0.1 K/uL (0.0-0.2); BASOPHILS % (AUTO) 1.3 % (0.0-2.0); EOSINOPHILS # (AUTO) 0.4 K/uL (0.0-0.7); EOSINOPHILS % (AUTO) 7.6 % (0.0-6.0); HEMATOCRIT 25 % (33-45); HEMOGLOBIN 7.8 g/dL (11.5-14.8); LYMPHOCYTES % (AUTO) 36.1 % (20.0-44.0); MEAN CORPUSCULAR HEMOGLOBIN 28 PG (26.0-33.0); MEAN CORPUSCULAR HGB CONC 31 g/dl (31.0-36.0); MEAN CORPUSCULAR VOLUME 90 fL (82-100); MONOCYTES # (AUTO) 0.9 K/uL (0.1-1.30); MONOCYTES % (AUTO) 16.2 % (2.0-12.0); NEUTROPHILS # (AUTO) 2.2 K/uL (1.8-8.9); NEUTROPHILS % (AUTO) 38.8 % (43.0-81.0); PLATELET COUNT (AUTO) 283 K/uL (150-450); RED BLOOD CELL COUNT(AUTO) 2.75 MIL/uL (4.0-5.2); RED CELL DISTRIBUTION WIDTH 14.8 % (11.5-15.0); WHITE BLOOD COUNT (AUTO) 5.6 K/uL (4.3-11.0)
[2023-02-09 07:33] LABS: BILIRUBIN,TOTAL 0.2 mg/dL (0.2-1.0); CALCIUM, SERUM 8.3 mg/dL (8.5-10.1); CREATININE 4.1 mg/dL (0.6-1.3); PHOSPHORUS 3.6 mg/dL (2.5-4.9); POTASSIUM 4.2 mmol/L (3.5-5.1)
[2023-02-09] MEDS: BLOOD SUGAR DIAGNOSTIC 1 EACH STRIP VI SCH ×4 (07:45→22:13)
[2023-02-09] MEDS: PIPERACILLIN /TAZOBACTAM 2.25 G in IV D5W 50 ML IV SCH ×2 (08:39→16:20)
[2023-02-09] MEDS: ASPIRIN EC 81 MG TABLET.DR PO SCH (09:00)
[2023-02-09 09:16] LABS: EOSINOPHILS % (MANUAL) 8 % (0-4); LYMPHOCYTES % (MANUAL) 42 % (16-48); MONOCYTES % (MANUAL) 7 % (0-11.0); NEUTROPHILS % (MANUAL) 43 (42-76); PLATELET ESTIMATE ADEQUATE
[2023-02-09] MEDS: LINAGLIPTIN 5 MG TABLET PO SCH (09:30)
[2023-02-09] MEDS: CARVEDILOL 6.25 MG TABLET PO SCH ×2 (09:30→17:52)
[2023-02-09] MEDS ORDERED: MIDAZOLAM HCL 2 MG/2ML VIAL IV PRN (13:00)
[2023-02-09] MEDS ORDERED: FLUMAZENIL 0.5 MG VIAL IV PRN (13:00)
[2023-02-09] MEDS ORDERED: FENTANYL PF 250MCG/5ML AMPUL IV PRN (13:00)
[2023-02-09] MEDS ORDERED: NALOXONE PREFILLED SYRINGE 2 MG/2 ML SYRINGE IV PRN (13:00)
[2023-02-09] MEDS ORDERED: LIDOCAINE 1% INJ 50 ML MDV IJ ONE (13:08)
[2023-02-09] MEDS ORDERED: LIDOCAINE HCL/PF 1% 30 ML SDV ONE (13:09)
[2023-02-09] MEDS: ATORVASTATIN 10 MG TABLET PO SCH (22:00)
[2023-02-10] MEDS: PIPERACILLIN /TAZOBACTAM 2.25 G in IV D5W 50 ML IV SCH (00:04)
[2023-02-10] MEDS: BLOOD SUGAR DIAGNOSTIC 1 EACH STRIP VI SCH ×4 (06:55→22:33)
[2023-02-10 07:02] LABS: BASOPHILS # (AUTO) 0.1 K/uL (0.0-0.2); BASOPHILS % (AUTO) 1.8 % (0.0-2.0); EOSINOPHILS # (AUTO) 0.4 K/uL (0.0-0.7); EOSINOPHILS % (AUTO) 6.9 % (0.0-6.0); HEMATOCRIT 27 % (33-45); HEMOGLOBIN 8.4 g/dL (11.5-14.8); LYMPHOCYTES # (AUTO) 1.4 K/uL (0.8-4.8); LYMPHOCYTES % (AUTO) 26.9 % (20.0-44.0); MEAN CORPUSCULAR HEMOGLOBIN 29 PG (26.0-33.0); MEAN CORPUSCULAR HGB CONC 31 g/dl (31.0-36.0); MEAN CORPUSCULAR VOLUME 91 fL (82-100); MONOCYTES # (AUTO) 0.6 K/uL (0.1-1.30); MONOCYTES % (AUTO) 11.9 % (2.0-12.0); NEUTROPHILS # (AUTO) 2.7 K/uL (1.8-8.9); NEUTROPHILS % (AUTO) 52.5 % (43.0-81.0); PLATELET COUNT (AUTO) 326 K/uL (150-450); RED BLOOD CELL COUNT(AUTO) 2.92 MIL/uL (4.0-5.2); RED CELL DISTRIBUTION WIDTH 15.1 % (11.5-15.0); WHITE BLOOD COUNT (AUTO) 5.2 K/uL (4.3-11.0)
[2023-02-10 07:18] LABS: CALCIUM, SERUM 8.7 mg/dL (8.5-10.1); CREATININE 3.1 mg/dL (0.6-1.3); POTASSIUM 4.1 mmol/L (3.5-5.1)
[2023-02-10 08:14] VITALS: BP 152/70; TEMP 99; O2SAT 96
[2023-02-10] MEDS: ASPIRIN EC 81 MG TABLET.DR PO SCH (11:09)
[2023-02-10] MEDS: CARVEDILOL 6.25 MG TABLET PO SCH ×2 (11:10→16:59)
[2023-02-10] MEDS: LINAGLIPTIN 5 MG TABLET PO SCH (11:10)
[2023-02-10] MEDS: HYDROCODONE/APAP 5/325MG TABLET PO PRN ×2 (11:21→21:53)
[2023-02-10] MEDS: INSULIN REGULAR, HUMAN 100 UNIT/ML 3 ML VIAL SQ PRN ×2 (12:24→17:11)
[2023-02-10 16:32] VITALS: BP 148/71; TEMP 98.1; O2SAT 98
[2023-02-10] MEDS ORDERED: FLUCONAZOLE (100 MG) 100 MG TABLET PO ONE (17:00)
[2023-02-10 20:00] VITALS: BP 145/87; TEMP 97; O2SAT 98
[2023-02-10] MEDS: ATORVASTATIN 10 MG TABLET PO SCH (21:46)
[2023-02-11] MEDS: BLOOD SUGAR DIAGNOSTIC 1 EACH STRIP VI SCH ×4 (06:58→23:00)
[2023-02-11 07:41] LABS: BASOPHILS # (AUTO) 0.1 K/uL (0.0-0.2); BASOPHILS % (AUTO) 0.9 % (0.0-2.0); EOSINOPHILS # (AUTO) 0.5 K/uL (0.0-0.7); EOSINOPHILS % (AUTO) 6.6 % (0.0-6.0); HEMATOCRIT 26 % (33-45); LYMPHOCYTES # (AUTO) 2.3 K/uL (0.8-4.8); LYMPHOCYTES % (AUTO) 33.2 % (20.0-44.0); MEAN CORPUSCULAR HEMOGLOBIN 29 PG (26.0-33.0); MEAN CORPUSCULAR HGB CONC 31 g/dl (31.0-36.0); MEAN CORPUSCULAR VOLUME 91 fL (82-100); MONOCYTES # (AUTO) 0.8 K/uL (0.1-1.30); MONOCYTES % (AUTO) 11.1 % (2.0-12.0); NEUTROPHILS # (AUTO) 3.4 K/uL (1.8-8.9); NEUTROPHILS % (AUTO) 48.2 % (43.0-81.0); PLATELET COUNT (AUTO) 325 K/uL (150-450); RED CELL DISTRIBUTION WIDTH 15.2 % (11.5-15.0); WHITE BLOOD COUNT (AUTO) 7.1 K/uL (4.3-11.0)
[2023-02-11 08:00] VITALS: BP 162/78; TEMP 97.9; O2SAT 97
[2023-02-11 08:06] LABS: BILIRUBIN,TOTAL 0.2 mg/dL (0.2-1.0); CALCIUM, SERUM 8.7 mg/dL (8.5-10.1); CREATININE 4.1 mg/dL (0.6-1.3); MAGNESIUM 2.1 mg/dL (1.8-2.4); PHOSPHORUS 3.5 mg/dL (2.5-4.9); POTASSIUM 4.2 mmol/L (3.5-5.1); TOTAL PROTEIN, SERUM 6.3 g/dL (6.4-8.2)
[2023-02-11] MEDS ORDERED: FENTANYL PF 250MCG/5ML AMPUL ONE (08:50)
[2023-02-11] MEDS ORDERED: MIDAZOLAM HCL 2 MG/2ML VIAL ONE (08:51)
[2023-02-11] MEDS ORDERED: ANESTHESIA TRAY IN PYXIS 1 EA TRAY MC ONE (08:52)
[2023-02-11] MEDS ORDERED: SUCCINYLCHOLINE CHLORIDE 20 MG/ML VIAL ONE (08:53)
[2023-02-11] MEDS ORDERED: CALCIUM CHLORIDE 1,000 MG/10 ML DISP.SYRIN ONE (08:53)
[2023-02-11] MEDS: LINAGLIPTIN 5 MG TABLET PO SCH (09:00)
[2023-02-11] MEDS ORDERED: LIDOCAINE 1% INJ 50 ML MDV IJ ONE (09:05)
[2023-02-11] MEDS ORDERED: LABETALOL HCL IV 100MG VIAL ONE (09:37)
[2023-02-11] MEDS ORDERED: HEPARIN SODIUM, PORCINE 1,000 UNIT/ML VIAL ONE (09:43)
[2023-02-11] MEDS: CARVEDILOL 6.25 MG TABLET PO SCH ×2 (13:22→18:08)
[2023-02-11] MEDS: ASPIRIN EC 81 MG TABLET.DR PO SCH (13:24)
[2023-02-11 16:00] VITALS: BP 145/68; TEMP 98.6; O2SAT 96
[2023-02-11 20:00] VITALS: BP 139/71; TEMP 97.2; O2SAT 98
[2023-02-11] MEDS: HYDROCODONE/APAP 5/325MG TABLET PO PRN (20:35)
[2023-02-11] MEDS: ATORVASTATIN 10 MG TABLET PO SCH (22:37)
[2023-02-12] MEDS: BLOOD SUGAR DIAGNOSTIC 1 EACH STRIP VI SCH ×4 (07:30→21:39)
[2023-02-12] MEDS: CARVEDILOL 6.25 MG TABLET PO SCH ×2 (09:07→16:48)
[2023-02-12] MEDS: LINAGLIPTIN 5 MG TABLET PO SCH (09:07)
[2023-02-12] MEDS: ASPIRIN EC 81 MG TABLET.DR PO SCH (09:07)
[2023-02-12] MEDS ORDERED: Z GUARD REMEDY 4 OZ OINT TP PRN (11:00)
[2023-02-12 20:33] VITALS: BP 154/82; TEMP 99; O2SAT 94
[2023-02-12] MEDS: ATORVASTATIN 10 MG TABLET PO SCH (21:36)
[2023-02-13] MEDS: BLOOD SUGAR DIAGNOSTIC 1 EACH STRIP VI SCH ×3 (06:36→16:52)
[2023-02-13 08:00] VITALS: TEMP 100.4; O2SAT 96
[2023-02-13] MEDS: LINAGLIPTIN 5 MG TABLET PO SCH (08:12)
[2023-02-13] MEDS: ASPIRIN EC 81 MG TABLET.DR PO SCH (08:13)
[2023-02-13] MEDS: CARVEDILOL 6.25 MG TABLET PO SCH ×2 (08:13→16:19)
[2023-02-13] MEDS ORDERED: CARV6.252 PO ×2 (09:19→09:22)
[2023-02-13] MEDS ORDERED: LINA5TAB PO ×2 (09:19→09:22)
[2023-02-13] MEDS ORDERED: AMLO5TAB4 PO ×2 (09:19→09:22)
[2023-02-13] MEDS ORDERED: LISI20TA30 PO (09:22)
[2023-02-13] MEDS ORDERED: AMLODIPINE BESYLATE 5 MG TABLET PO SCH (09:30)
[2023-02-13] MEDS ORDERED: LISINOPRIL (20MG) 20 MG TABLET PO SCH (09:30)
[2023-02-13] MEDS: INSULIN REGULAR, HUMAN 100 UNIT/ML 3 ML VIAL SQ PRN ×2 (11:49→16:52)
[2023-02-13 16:00] VITALS: BP 157/76; TEMP 98.4; O2SAT 97
[2023-02-13 16:19] VITALS: BP 157/76
== END 2023-02-13 18:05 | DRG 469 ==
LOC: ER 13:51 → TELE 19:35 → ICU 01-31 14:11 → MED 02-04 15:19
PROVIDERS: ADMIT Internal Medicine; ATTEND Internal Medicine
PROC: 5A1945Z Respiratory Ventilation, 24-96 Consecutive Hours (ICD-10-PCS; principal; 2023-01-31)
PROC: 05HC33Z Insertion of Infusion Device into Left Basilic Vein, Percutaneous Approach (ICD-10-PCS; 2023-01-31)
PROC: 0BH17EZ Insertion of Endotracheal Airway into Trachea, Via Natural or Artificial Opening (ICD-10-PCS; 2023-01-31)
PROC: B548ZZA Ultrasonography of Superior Vena Cava, Guidance (ICD-10-PCS; 2023-01-31)
PROC: 02HV33Z Insertion of Infusion Device into Superior Vena Cava, Percutaneous Approach (ICD-10-PCS; 2023-01-31)
PROC: 5A12012 Performance of Cardiac Output, Single, Manual (ICD-10-PCS; 2023-01-31)
PROC: 5A1D70Z Performance of Urinary Filtration, Intermittent, Less than 6 Hours Per Day (ICD-10-PCS; 2023-02-01)
PROC: 0TB03ZX Excision of Right Kidney, Percutaneous Approach, Diagnostic (ICD-10-PCS; 2023-02-09)
PROC: B518YZA Fluoroscopy of Superior Vena Cava using Other Contrast, Guidance (ICD-10-PCS; 2023-02-11)
PROC: 0JH63XZ Insertion of Tunneled Vascular Access Device into Chest Subcutaneous Tissue and Fascia, Percutaneous Approach (ICD-10-PCS; 2023-02-11)
PROC: 02HV33Z Insertion of Infusion Device into Superior Vena Cava, Percutaneous Approach (ICD-10-PCS; 2023-02-11)
DX: N17.9 Acute kidney failure, unspecified (principal); J96.00 Acute respiratory failure, unspecified whether with hypoxia or hypercapnia; J69.0 Pneumonitis due to inhalation of food and vomit; E44.1 Mild protein-calorie malnutrition; D63.1 Anemia in chronic kidney disease; E88.09 Other disorders of plasma-protein metabolism, not elsewhere classified; I13.0 Hypertensive heart and chronic kidney disease with heart failure and stage 1 through stage 4 chronic kidney disease, or unspecified chronic kidney disease; I50.32 Chronic diastolic (congestive) heart failure; E11.22 Type 2 diabetes mellitus with diabetic chronic kidney disease; M25.561 Pain in right knee; M25.562 Pain in left knee; Z91.81 History of falling; N18.9 Chronic kidney disease, unspecified; G47.33 Obstructive sleep apnea (adult) (pediatric); E66.01 Morbid (severe) obesity due to excess calories; E78.5 Hyperlipidemia, unspecified; J98.11 Atelectasis; Z68.42 Body mass index [BMI] 45.0-49.9, adult; Z79.4 Long term (current) use of insulin; Z79.84 Long term (current) use of oral hypoglycemic drugs; Z79.899 Other long term (current) drug therapy; Q78.9 Osteochondrodysplasia, unspecified
CPT/HCPCS: 31720; 36410; 36415; 36600; 71045-TC; 73564-TC; 76000-TC; 76700-TC; 77012-TC; 80048-TC; 80053-TC; 80076-TC; 82728-TC; 82803-TC; 82962-TC; 83540-TC; 83735-TC; 83880; 84100-TC; 84155; 84165; 84439-TC; 84443-TC; 84484-TC; 84703-TC; 85025-TC; 85027-TC; 85610-TC; 85652-TC; 85730-TC; 86225; 86235; 86706; 86803; 87340; 90935-TC; 92526; 92611-TC; 93307-TC; 93970-TC; 94002-TC; 94003-TC; 94799-TC; 97110-TC; 97112-TC; 97116-TC; 97530-TC; A4223; C1750; C1757; C1769; C1894; G0378; J0171; J0330; J0360; J0690; J1644; J1815; J1940; J2250; J2405; J2543; J2916; J3010; J3490; J7030; J7040; J7050; J7060

== ENCOUNTER 2023-04-20 13:46 | Emergency (ER) | payer MEDICAID ==
[~2023-04-20] VITALS: Ht 160 cm; Wt 77.1 kg
[~2023-04-20 13:46] MED LIST changes: +AMLO5TAB4 PO; -ASPI-1420 PO; -ATOR10TA PO; -CEFD300C3 PO; -FURO-144 PO; -GLIM4TAB37 PO; -INSU100I4 SQ; +LISI20TA30 PO; -NIFE-35 PO
[2023-04-20] MEDS ORDERED: MECLIZINE HCL 25 MG TABLET PO ONE (15:30)
[2023-04-20] MEDS ORDERED: METOCLOPRAMIDE HCL 10 MG/2 ML VIAL IV ONE (15:30)
[2023-04-20] MEDS ORDERED: METOCLOPRAMIDE HCL 10 MG TABLET ONE (15:37)
[2023-04-20] MEDS ORDERED: MECLIZINE HCL 25 MG TABLET ONE (15:37)
[2023-04-20 15:45] LABS: BASOPHILS # (AUTO) 0.1 K/uL (0.0-0.2); BASOPHILS % (AUTO) 0.9 % (0.0-2.0); EOSINOPHILS # (AUTO) 0.1 K/uL (0.0-0.7); EOSINOPHILS % (AUTO) 2.2 % (0.0-6.0); HEMATOCRIT 38 % (33-45); HEMOGLOBIN 12.1 g/dL (11.5-14.8); LYMPHOCYTES % (AUTO) 44.8 % (20.0-44.0); MEAN CORPUSCULAR HEMOGLOBIN 28 PG (26.0-33.0); MEAN CORPUSCULAR HGB CONC 32 g/dl (31.0-36.0); MEAN CORPUSCULAR VOLUME 88 fL (82-100); MONOCYTES # (AUTO) 0.8 K/uL (0.1-1.30); MONOCYTES % (AUTO) 12.4 % (2.0-12.0); NEUTROPHILS # (AUTO) 2.7 K/uL (1.8-8.9); NEUTROPHILS % (AUTO) 39.7 % (43.0-81.0); PLATELET COUNT (AUTO) 231 K/uL (150-450); RED BLOOD CELL COUNT(AUTO) 4.34 MIL/uL (4.0-5.2); RED CELL DISTRIBUTION WIDTH 17.4 % (11.5-15.0); WHITE BLOOD COUNT (AUTO) 6.7 K/uL (4.3-11.0)
[2023-04-20 16:11] LABS: INR 0.92 (0.91-1.10); PARTIAL THROMBOPLASTIN TIME 32.2 SEC (24.3-34.3); PROTHROMBIN TIME 9.8 SECS (9.2-11.1)
[2023-04-20 16:13] LABS: CALCIUM, SERUM 8.5 mg/dL (8.5-10.1); CARBON DIOXIDE 34 mmol/L (21-32); CHLORIDE 98 mmol/L (98-107); CREATININE 2.4 mg/dL (0.6-1.3); GLUCOSE 84 mg/dL (74-106); POTASSIUM 3.5 mmol/L (3.5-5.1); SODIUM SERUM 132 mmol/L (136-145); UREA NITROGEN, BLOOD 7 mg/dL (7-18)
[2023-04-20] MEDS ORDERED: MECL-159 PO (16:50)
[2023-04-20] MEDS ORDERED: METO-295 PO (16:50)
[2023-04-20 18:07] VITALS: BP 144/75; TEMP 98; O2SAT 100
== END 2023-04-20 18:08 | disposition home or self-care (01) ==
LOC: ER 13:46
DX: R42 Dizziness and giddiness (principal); I10 Essential (primary) hypertension; E11.9 Type 2 diabetes mellitus without complications
CPT/HCPCS: 99285; 71045; 93005; 85025; 80048; 36415; 84484; 85730; J8597 ×2

== ENCOUNTER 2023-08-03 13:29 | Emergency (ER) | payer MEDICAID ==
[~2023-08-03] VITALS: Ht 160 cm; Wt 84.4 kg
[~2023-08-03 13:29] MED LIST changes: +MECL-159 PO; +METO-295 PO
[2023-08-03] MEDS ORDERED: AMLO-212 PO (15:14)
[2023-08-03 15:22] VITALS: BP 165/95; TEMP 98.6; O2SAT 98
== END 2023-08-03 15:22 | disposition home or self-care (01) ==
LOC: ER 13:36
DX: I12.0 Hypertensive chronic kidney disease with stage 5 chronic kidney disease or end stage renal disease (principal); E11.22 Type 2 diabetes mellitus with diabetic chronic kidney disease; N18.6 End stage renal disease; Z99.2 Dependence on renal dialysis

== ENCOUNTER 2023-12-12 12:36 | Inpatient (IN) | payer MEDICAID ==
[~2023-12-12] VITALS: Ht 157.5 cm; Wt 80.7 kg
[~2023-12-12 12:36] MED LIST changes: +AMLO-212 PO
[2023-12-12] MEDS ORDERED: SEVE0.8P3 PO (13:30)
[2023-12-12] MEDS ORDERED: CARV6.25 PO (13:30)
[2023-12-12] MEDS ORDERED: ASPI-1169 PO (13:30)
[2023-12-12] MEDS ORDERED: LISI40TA13 PO (13:30)
[2023-12-12 14:29] LABS: BASOPHILS # (AUTO) 0.1 K/uL (0.0-0.2); BASOPHILS % (AUTO) 1.3 % (0.0-2.0); EOSINOPHILS # (AUTO) 0.2 K/uL (0.0-0.7); EOSINOPHILS % (AUTO) 4.2 % (0.0-6.0); HEMATOCRIT 30 % (33-45); HEMOGLOBIN 10.2 g/dL (11.5-14.8); LYMPHOCYTES # (AUTO) 1.2 K/uL (0.8-4.8); LYMPHOCYTES % (AUTO) 24.7 % (20.0-44.0); MEAN CORPUSCULAR HEMOGLOBIN 31 PG (26.0-33.0); MEAN CORPUSCULAR HGB CONC 34 g/dl (31.0-36.0); MEAN CORPUSCULAR VOLUME 92 fL (82-100); MONOCYTES # (AUTO) 0.3 K/uL (0.1-1.30); MONOCYTES % (AUTO) 5.7 % (2.0-12.0); NEUTROPHILS # (AUTO) 3.2 K/uL (1.8-8.9); NEUTROPHILS % (AUTO) 64.1 % (43.0-81.0); PLATELET COUNT (AUTO) 260 K/uL (150-450); RED BLOOD CELL COUNT(AUTO) 3.29 MIL/uL (4.0-5.2); RED CELL DISTRIBUTION WIDTH 13.8 % (11.5-15.0)
[2023-12-12 14:31] LABS: CALCIUM, SERUM 9.1 mg/dL (8.5-10.1); CARBON DIOXIDE 34 mmol/L (21-32); CHLORIDE 98 mmol/L (98-107); CREATININE 3.1 mg/dL (0.6-1.3); GLUCOSE 106 mg/dL (74-106); POTASSIUM 3.4 mmol/L (3.5-5.1); SODIUM SERUM 138 mmol/L (136-145); UREA NITROGEN, BLOOD 14 mg/dL (7-18)
[2023-12-12] MEDS ORDERED: hydrALAZINE HCL IV 20 MG VIAL ONE (14:46)
[2023-12-12] MEDS: hydrALAZINE HCL IV 20 MG VIAL IV ONE (14:47)
[2023-12-12 21:48] VITALS: BP 185/80; TEMP 97.9; O2SAT 97
[2023-12-12 22:00] VITALS: BP 185/80; TEMP 97.9; O2SAT 97
[2023-12-12] MEDS ORDERED: NITROGLYCERIN 0.4 MG/TAB BOTTLE SL PRN (22:30)
[2023-12-12] MEDS ORDERED: MORPHINE SULFATE INJ 4 MG/ML DISP.SYRIN IV PRN (22:30)
[2023-12-12] MEDS ORDERED: MORPHINE SULFATE INJ 2 MG/ML DISP.SYRIN IV PRN (22:30)
[2023-12-13] VITALS (7 sets, daily range): BP systolic 67–183; BP diastolic 72–90; TEMP 97.7–99.1; O2SAT 96–99
[2023-12-13] MEDS: CLONIDINE HCL 0.1 MG TABLET PO PRN (04:27)
[2023-12-13] MEDS: ACETAMINOPHEN 325 MG TABLET PO PRN (04:28)
[2023-12-13] MEDS: ASPIRIN 325 MG TABLET PO SCH (08:27)
[2023-12-13] MEDS: ATORVASTATIN 40 MG TABLET PO SCH (08:27)
[2023-12-13] MEDS: CARVEDILOL 6.25 MG TABLET PO SCH (08:28)
[2023-12-13] MEDS: LISINOPRIL (20MG) 20 MG TABLET PO SCH (08:29)
[2023-12-13 13:19] LABS: BASOPHILS # (AUTO) 0.1 K/uL (0.0-0.2); BASOPHILS % (AUTO) 1.7 % (0.0-2.0); EOSINOPHILS # (AUTO) 0.2 K/uL (0.0-0.7); EOSINOPHILS % (AUTO) 3.9 % (0.0-6.0); HEMATOCRIT 32 % (33-45); HEMOGLOBIN 10.3 g/dL (11.5-14.8); LYMPHOCYTES # (AUTO) 1.8 K/uL (0.8-4.8); LYMPHOCYTES % (AUTO) 36.1 % (20.0-44.0); MEAN CORPUSCULAR HEMOGLOBIN 30 PG (26.0-33.0); MEAN CORPUSCULAR HGB CONC 33 g/dl (31.0-36.0); MEAN CORPUSCULAR VOLUME 93 fL (82-100); MONOCYTES # (AUTO) 0.4 K/uL (0.1-1.30); MONOCYTES % (AUTO) 8.7 % (2.0-12.0); NEUTROPHILS # (AUTO) 2.5 K/uL (1.8-8.9); NEUTROPHILS % (AUTO) 49.6 % (43.0-81.0); PLATELET COUNT (AUTO) 245 K/uL (150-450); RED BLOOD CELL COUNT(AUTO) 3.39 MIL/uL (4.0-5.2); RED CELL DISTRIBUTION WIDTH 13.9 % (11.5-15.0); WHITE BLOOD COUNT (AUTO) 5.1 K/uL (4.3-11.0)
[2023-12-13 13:28] LABS: CALCIUM, SERUM 8.7 mg/dL (8.5-10.1); POTASSIUM 4.6 mmol/L (3.5-5.1)
[2023-12-13 13:43] LABS: THYROID STIMULATING HORMONE 2.53 uIU/mL (0.358-3.74)
[2023-12-13] MEDS: AMLODIPINE BESYLATE 5 MG TABLET PO SCH (16:59)
[2023-12-13] MEDS: hydrALAZINE HCL IV 20 MG VIAL IV PRN (18:03)
[2023-12-14] VITALS (10 sets, daily range): BP systolic 151–169; BP diastolic 63–82; TEMP 97.5–98.4; O2SAT 96–99
[2023-12-15 00:47] VITALS: BP 151/82; TEMP 98.4; O2SAT 97
[2023-12-15 04:29] VITALS: BP 158/60; TEMP 99.3; O2SAT 99
[2023-12-15 04:46] VITALS: BP 158/60; TEMP 99.3; O2SAT 99
[2023-12-15 07:30] VITALS: BP 173/77; TEMP 98.1; O2SAT 98
[2023-12-15] MEDS: hydrALAZINE HCL 50 MG TABLET PO SCH (10:00)
[2023-12-15] MEDS: NITROGLYCERIN 30 GM TUBE TP SCH (10:00)
[2023-12-15] MEDS: METOPROLOL TARTRATE INJ 5 MG/5 ML AMPUL IVP PRN (13:50)
[2023-12-15] MEDS ORDERED: IOHEXOL-350 100 ML VIAL IV ONE (13:53)
[2023-12-15] MEDS ORDERED: CT SWABBABLE VALVE TRANS SET 1 EA INFUS.SET MC ONE (13:53)
[2023-12-15] MEDS ORDERED: IV NS 0.9% 250 ML IV ONE (13:53)
[2023-12-15] MEDS ORDERED: METOPROLOL TARTRATE INJ 5 MG/5 ML AMPUL ONE ×3 (14:11→14:35)
[2023-12-15] MEDS ORDERED: NITROGLYCERIN 0.4 MG/TAB BOTTLE ONE (14:11)
[2023-12-15] MEDS: NITROGLYCERIN 0.4 MG/TAB BOTTLE SL ONE (14:45)
[2023-12-15 16:00] VITALS: BP 157/77; TEMP 98.2; O2SAT 97
[2023-12-15 20:00] VITALS: BP 128/54; TEMP 97.7; O2SAT 100
[2023-12-16] VITALS: BP 160/73; TEMP 98.4; O2SAT 99
[2023-12-16 04:00] VITALS: BP 158/76; TEMP 98.1; O2SAT 98
[2023-12-16 07:31] LABS: BASOPHILS # (AUTO) 0.1 K/uL (0.0-0.2); BASOPHILS % (AUTO) 1.1 % (0.0-2.0); EOSINOPHILS # (AUTO) 0.3 K/uL (0.0-0.7); HEMATOCRIT 31 % (33-45); HEMOGLOBIN 9.9 g/dL (11.5-14.8); LYMPHOCYTES % (AUTO) 31.6 % (20.0-44.0); MEAN CORPUSCULAR HEMOGLOBIN 30 PG (26.0-33.0); MEAN CORPUSCULAR HGB CONC 32 g/dl (31.0-36.0); MEAN CORPUSCULAR VOLUME 93 fL (82-100); MONOCYTES # (AUTO) 0.7 K/uL (0.1-1.30); NEUTROPHILS # (AUTO) 3.2 K/uL (1.8-8.9); NEUTROPHILS % (AUTO) 51.3 % (43.0-81.0); PLATELET COUNT (AUTO) 226 K/uL (150-450); RED BLOOD CELL COUNT(AUTO) 3.28 MIL/uL (4.0-5.2); WHITE BLOOD COUNT (AUTO) 6.3 K/uL (4.3-11.0)
[2023-12-16 07:47] LABS: CALCIUM, SERUM 9.3 mg/dL (8.5-10.1); CREATININE 5.9 mg/dL (0.6-1.3); POTASSIUM 4.6 mmol/L (3.5-5.1)
[2023-12-16 09:05] VITALS: BP 148/61
[2023-12-16] MEDS ORDERED: AMLO-213 PO (17:05)
[2023-12-16] MEDS ORDERED: HYDR-4077 PO (17:05)
[2023-12-16 17:59] VITALS: BP 179/84
== END 2023-12-16 19:40 | disposition home or self-care (01) | DRG 199 ==
LOC: ER 12:40 → TELE 20:20 → MED 12-16 15:04
PROVIDERS: ADMIT Internal Medicine; ATTEND Internal Medicine
PROC: 5A1D70Z Performance of Urinary Filtration, Intermittent, Less than 6 Hours Per Day (ICD-10-PCS; principal; 2023-12-16)
DX: I16.0 Hypertensive urgency (principal); N18.6 End stage renal disease; I27.20 Pulmonary hypertension, unspecified; I25.2 Old myocardial infarction; E11.22 Type 2 diabetes mellitus with diabetic chronic kidney disease; D64.9 Anemia, unspecified; R07.89 Other chest pain; I13.2 Hypertensive heart and chronic kidney disease with heart failure and with stage 5 chronic kidney disease, or end stage renal disease; Z99.2 Dependence on renal dialysis; I50.9 Heart failure, unspecified; Z79.82 Long term (current) use of aspirin; Z79.899 Other long term (current) drug therapy; M89.8X9 Other specified disorders of bone, unspecified site; Z98.891 History of uterine scar from previous surgery
CPT/HCPCS: 36415; 71045-TC; 75574; 80048-TC; 80061-TC; 84443-TC; 84484-TC; 85025-TC; 90935-TC; 93307-TC; G0378; J0360; J3490; J7030; J7050; Q9967

== ENCOUNTER 2024-01-11 16:41 | Emergency (ER) | payer MEDICAID ==
[~2024-01-11] VITALS: Ht 154.9 cm; Wt 79.4 kg
[~2024-01-11 16:41] MED LIST changes: -AMLO-212 PO; +AMLO-213 PO; -AMLO5TAB4 PO; +ASPI-1169 PO; +CARV6.25 PO; -CARV6.252 PO; +HYDR-4077 PO; -LINA5TAB PO; -LISI20TA30 PO; +LISI40TA13 PO; -MECL-159 PO; -METO-295 PO; +SEVE0.8P3 PO
[2024-01-11] MEDS ORDERED: ERYT3.5O9 EACHEYE (17:29)
[2024-01-11 17:46] VITALS: BP 140/80; TEMP 98.6; O2SAT 98
== END 2024-01-11 17:46 | disposition home or self-care (01) ==
LOC: ER 16:44
DX: H10.33 Unspecified acute conjunctivitis, bilateral (principal); I12.9 Hypertensive chronic kidney disease with stage 1 through stage 4 chronic kidney disease, or unspecified chronic kidney disease; E11.22 Type 2 diabetes mellitus with diabetic chronic kidney disease; N18.9 Chronic kidney disease, unspecified; Z86.79 Personal history of other diseases of the circulatory system; Z87.448 Personal history of other diseases of urinary system; Z99.2 Dependence on renal dialysis

== ENCOUNTER 2024-06-25 13:52 | Emergency (ER) | payer MEDICAID ==
[~2024-06-25] VITALS: Ht 160 cm; Wt 82.1 kg
[~2024-06-25 13:52] MED LIST changes: +ERYT3.5O9 EACHEYE
[2024-06-25] MEDS ORDERED: ACETAMINOPHEN ES 500 MG TABLET ONE (15:07)
[2024-06-25] MEDS ORDERED: PROCHLORPERAZINE EDISYLATE 10 MG/2 ML VIAL ONE (15:08)
[2024-06-25] MEDS ORDERED: diphenhydrAMINE HCL 50 MG/ML VIAL ONE (15:08)
[2024-06-25 15:22] LABS: BASOPHILS % (AUTO) 0.6 % (0.0-2.0); EOSINOPHILS # (AUTO) 0.1 K/uL (0.0-0.7); EOSINOPHILS % (AUTO) 1.2 % (0.0-6.0); HEMATOCRIT 35 % (33-45); HEMOGLOBIN 11.9 g/dL (11.5-14.8); LYMPHOCYTES # (AUTO) 1.4 K/uL (0.8-4.8); LYMPHOCYTES % (AUTO) 21.4 % (20.0-44.0); MEAN CORPUSCULAR HEMOGLOBIN 30 PG (26.0-33.0); MEAN CORPUSCULAR HGB CONC 34 g/dl (31.0-36.0); MEAN CORPUSCULAR VOLUME 90 fL (82-100); MONOCYTES # (AUTO) 0.6 K/uL (0.1-1.30); NEUTROPHILS # (AUTO) 4.4 K/uL (1.8-8.9); NEUTROPHILS % (AUTO) 67.8 % (43.0-81.0); PLATELET COUNT (AUTO) 239 K/uL (150-450); RED BLOOD CELL COUNT(AUTO) 3.95 MIL/uL (4.0-5.2); RED CELL DISTRIBUTION WIDTH 14.4 % (11.5-15.0); WHITE BLOOD COUNT (AUTO) 6.5 K/uL (4.3-11.0)
[2024-06-25] MEDS: diphenhydrAMINE HCL 50 MG/ML VIAL IV ONE (15:33)
[2024-06-25] MEDS: ACETAMINOPHEN ES 500 MG TABLET PO ONE (15:33)
[2024-06-25 15:34] LABS: CALCIUM, SERUM 8.4 mg/dL (8.5-10.1); CREATININE 3.8 mg/dL (0.6-1.3); POTASSIUM 3.7 mmol/L (3.5-5.1)
[2024-06-25] MEDS: PROCHLORPERAZINE EDISYLATE 10 MG/2 ML VIAL IVP ONE (15:34)
[2024-06-25 17:48] VITALS: BP 155/77; TEMP 98.8; O2SAT 100
== END 2024-06-25 17:49 | disposition home or self-care (01) ==
LOC: ER 13:53
DX: R51.9 Headache, unspecified (principal); N18.6 End stage renal disease; I12.0 Hypertensive chronic kidney disease with stage 5 chronic kidney disease or end stage renal disease; E66.9 Obesity, unspecified; E11.22 Type 2 diabetes mellitus with diabetic chronic kidney disease; Z68.44 Body mass index [BMI] 60.0-69.9, adult; Z79.82 Long term (current) use of aspirin; Z99.2 Dependence on renal dialysis; Z79.899 Other long term (current) drug therapy
CPT/HCPCS: 99285; 96374; 93005; 85025; 80048; 36415; J0780; J1200

== ENCOUNTER 2024-08-10 16:03 | Emergency (ER) | payer MEDICAID ==
[~2024-08-10] VITALS: Ht 160 cm; Wt 81.6 kg
[2024-08-10] MEDS ORDERED: OXYM30SP21 NS (16:46)
[2024-08-10] MEDS ORDERED: AZIT250T PO (16:46)
[2024-08-10] MEDS ORDERED: AZITHROMYCIN 250 MG TABLET ONE (16:47)
[2024-08-10] MEDS: AZITHROMYCIN 250 MG TABLET PO ONE (16:53)
[2024-08-10 17:05] VITALS: BP 155/70; TEMP 98.5; O2SAT 96
== END 2024-08-10 17:05 | disposition home or self-care (01) ==
LOC: ER 16:15
DX: U07.1 COVID-19 (principal); J18.9 Pneumonia, unspecified organism; R09.81 Nasal congestion; I12.0 Hypertensive chronic kidney disease with stage 5 chronic kidney disease or end stage renal disease; E11.22 Type 2 diabetes mellitus with diabetic chronic kidney disease; N18.6 End stage renal disease; Z79.82 Long term (current) use of aspirin; Z79.899 Other long term (current) drug therapy
CPT/HCPCS: 71045-TC

== ENCOUNTER 2024-08-13 08:35 | Emergency (ER) | payer MEDICAID ==
[~2024-08-13] VITALS: Ht 160 cm; Wt 95.7 kg
[~2024-08-13 08:35] MED LIST changes: +AZIT250T PO; +OXYM30SP21 NS
[2024-08-13 08:50] VITALS: TEMP 98.2
[2024-08-13] MEDS: CEFEPIME 1 GM in IV D5W 50 ML IV ONE (09:35)
[2024-08-13 09:40] LABS: BASOPHILS # (AUTO) 0.1 K/uL (0.0-0.2); BASOPHILS % (AUTO) 1.1 % (0.0-2.0); EOSINOPHILS # (AUTO) 0.3 K/uL (0.0-0.7); EOSINOPHILS % (AUTO) 3.3 % (0.0-6.0); HEMATOCRIT 29 % (33-45); HEMOGLOBIN 9.7 g/dL (11.5-14.8); LYMPHOCYTES # (AUTO) 1.7 K/uL (0.8-4.8); LYMPHOCYTES % (AUTO) 16.8 % (20.0-44.0); MEAN CORPUSCULAR HEMOGLOBIN 31 PG (26.0-33.0); MEAN CORPUSCULAR HGB CONC 34 g/dl (31.0-36.0); MEAN CORPUSCULAR VOLUME 91 fL (82-100); MONOCYTES # (AUTO) 0.5 K/uL (0.1-1.30); MONOCYTES % (AUTO) 5.4 % (2.0-12.0); NEUTROPHILS # (AUTO) 7.2 K/uL (1.8-8.9); NEUTROPHILS % (AUTO) 73.4 % (43.0-81.0); PLATELET COUNT (AUTO) 307 K/uL (150-450); RED BLOOD CELL COUNT(AUTO) 3.12 MIL/uL (4.0-5.2); RED CELL DISTRIBUTION WIDTH 13.7 % (11.5-15.0); WHITE BLOOD COUNT (AUTO) 9.9 K/uL (4.3-11.0)
[2024-08-13 09:54] LABS: CALCIUM, SERUM 8.4 mg/dL (8.5-10.1); POTASSIUM 5.4 mmol/L (3.5-5.1)
[2024-08-13 09:56] LABS: INR 0.98 (0.91-1.10); PARTIAL THROMBOPLASTIN TIME 29.2 SEC (24.3-34.3); PROTHROMBIN TIME 10.4 SECS (9.2-11.1)
[2024-08-13 10:00] LABS: ALBUMIN 3.5 g/dL (3.4-5.0); BILIRUBIN,DIRECT 0.2 mg/dL (0.0-0.2)
[2024-08-13 10:03] LABS: LACTIC ACID 1.2 mmol/L (0.4-2.0)
[2024-08-13] MEDS: hydrALAZINE HCL IV 20 MG VIAL IV ONE (11:09)
[2024-08-13 16:00] VITALS: BP 163/76; O2SAT 99
== END 2024-08-13 17:15 | disposition short-term general hospital (02) ==
LOC: ER 08:40
DX: U07.1 COVID-19 (principal); J81.0 Acute pulmonary edema; I12.0 Hypertensive chronic kidney disease with stage 5 chronic kidney disease or end stage renal disease; E11.22 Type 2 diabetes mellitus with diabetic chronic kidney disease; N18.6 End stage renal disease; I16.0 Hypertensive urgency; Z79.82 Long term (current) use of aspirin; Z79.899 Other long term (current) drug therapy; Z99.2 Dependence on renal dialysis
CPT/HCPCS: 99285; 96365; 71045; 96375; 87426; 93005; 87804 ×2; 84145; 85025; 80048; 87040 ×2; 83605; 80076; 36415; 85730; J0360; J7060; J0692

== ENCOUNTER 2024-10-28 12:06 | Inpatient (IN) | payer MEDICAID ==
[~2024-10-28] VITALS: Ht 167.6 cm; Wt 95.3 kg
[2024-10-28 12:56] LABS: PLATELET COUNT (AUTO) 281 K/uL (150-450); RED BLOOD CELL COUNT(AUTO) 3.29 MIL/uL (4.0-5.2); RED CELL DISTRIBUTION WIDTH 13.6 % (11.5-15.0); WHITE BLOOD COUNT (AUTO) 11.0 K/uL (4.3-11.0)
[2024-10-28 13:18] LABS: CALCIUM, SERUM 9.6 mg/dL (8.5-10.1); CREATININE 7.0 mg/dL (0.6-1.3); SODIUM SERUM 134 mmol/L (136-145); UREA NITROGEN, BLOOD 59 mg/dL (7-18)
[2024-10-28 13:19] LABS: ASPARTATE AMINOTRANSFERASE 11 U/L (15-37); TOTAL PROTEIN, SERUM 8.7 g/dL (6.4-8.2)
[2024-10-28] MEDS ORDERED: CALCIUM CHLORIDE 1,000 MG/10 ML DISP.SYRIN ONE (13:58)
[2024-10-28] MEDS ORDERED: FUROSEMIDE 20 MG/2 ML VIAL ONE (13:58)
[2024-10-28] MEDS ORDERED: INSULIN REGULAR, HUMAN 100 UNIT/ML 10 ML VIAL ONE (13:58)
[2024-10-28] MEDS ORDERED: DEXTROSE 50%-WATER 50 ML DISP.SYRIN ONE (13:58)
[2024-10-28] MEDS ORDERED: ONDANSETRON HCL/PF 4 MG/2 ML VIAL ONE (14:00)
[2024-10-28] MEDS ORDERED: MORPHINE SULFATE INJ 4 MG/ML DISP.SYRIN ONE (14:00)
[2024-10-28] MEDS: ONDANSETRON HCL/PF 4 MG/2 ML VIAL IVP ONE (14:04)
[2024-10-28] MEDS: MORPHINE SULFATE INJ 2 MG/ML DISP.SYRIN IV ONE (14:04)
[2024-10-28] MEDS: INSULIN REGULAR, HUMAN 100 UNIT/ML 10 ML VIAL IV ONE (14:05)
[2024-10-28] MEDS: DEXTROSE 50%-WATER 50 ML DISP.SYRIN IV ONE (14:05)
[2024-10-28] MEDS: CALCIUM CHLORIDE 1,000 MG/10 ML DISP.SYRIN IV ONE (14:10)
[2024-10-28] MEDS: SODIUM POLYSTYRENE SULFONATE 15 G/60 ML BOTTLE PO ONE (14:15)
[2024-10-28] MEDS: FUROSEMIDE 40 MG/4 ML VIAL IV ONE (14:15)
[2024-10-28] MEDS: ALBUTEROL FS 2.5 MG/3 ML VIAL.NEB NEB ONE (14:27)
[2024-10-28] MEDS ORDERED: MAG HYDROX/AL HYDROX/SIMETH 30 ML UDC PO PRN (14:30)
[2024-10-28] MEDS ORDERED: MAGNESIUM HYDROXIDE 30 ML UDC PO PRN (14:30)
[2024-10-28] MEDS ORDERED: DEXTROSE 50%-WATER 50 ML DISP.SYRIN IV PRN (14:30)
[2024-10-28] MEDS ORDERED: Z GUARD REMEDY 4 OZ OINT TP PRN (14:30)
[2024-10-28 14:35] VITALS: O2SAT 97
[2024-10-28] MEDS ORDERED: ALBUTEROL FS 2.5 MG/3 ML VIAL.NEB ONE (14:35)
[2024-10-28 14:45] VITALS: O2SAT 98
[2024-10-28] MEDS ORDERED: SODIUM POLYSTYRENE SULFONATE 15 G/60 ML BOTTLE ONE (14:46)
[2024-10-28] MEDS ORDERED: DOSING PER PHARMACY-ZOSYN IV 1 EA EA XX PRN (15:00)
[2024-10-28] MEDS ORDERED: INSU100I4 SQ (15:15)
[2024-10-28] MEDS ORDERED: CARV25TA PO (15:15)
[2024-10-28] MEDS ORDERED: HYDR100T27 PO (15:15)
[2024-10-28] MEDS: ACETAMINOPHEN 325 MG TABLET PO PRN (15:50)
[2024-10-28] MEDS: ZOSYN IVPB 2.25 G in IV D5W 50ml IV SCH (15:51)
[2024-10-28 16:00] VITALS: BP 180/80; TEMP 100.2; O2SAT 99
[2024-10-28] MEDS: BLOOD SUGAR DIAGNOSTIC 1 EACH STRIP IN SCH (17:53)
[2024-10-28 18:30] LABS: CALCIUM, SERUM 9.1 mg/dL (8.5-10.1); CREATININE 6.1 mg/dL (0.6-1.3); SODIUM SERUM 131.0 mmol/L (136-145); UREA NITROGEN, BLOOD 54.0 mg/dL (7-18)
[2024-10-28 20:00] VITALS: BP 144/76; TEMP 97.3; O2SAT 95
[2024-10-28] MEDS: HYDROCODONE/APAP 5/325MG TABLET PO PRN (21:15)
[2024-10-28] MEDS: INSULIN REGULAR, HUMAN 100 UNIT/ML 3 ML VIAL SQ PRN (23:21)
[2024-10-29] VITALS: BP 141/75; TEMP 97.5; O2SAT 95
[2024-10-29] MEDS: ONDANSETRON HCL/PF 4 MG/2 ML VIAL IVP PRN (01:45)
[2024-10-29 04:00] VITALS: BP 142/66; TEMP 98.2; O2SAT 94
[2024-10-29] MEDS: MORPHINE SULFATE INJ 2 MG/ML DISP.SYRIN IV PRN (04:42)
[2024-10-29 07:03] LABS: PLATELET COUNT (AUTO) 289 K/uL (150-450); RED BLOOD CELL COUNT(AUTO) 3.04 MIL/uL (4.0-5.2); RED CELL DISTRIBUTION WIDTH 13.2 % (11.5-15.0); WHITE BLOOD COUNT (AUTO) 11.0 K/uL (4.3-11.0)
[2024-10-29 07:18] LABS: CALCIUM, SERUM 9.1 mg/dL (8.5-10.1); CREATININE 5.2 mg/dL (0.6-1.3); PHOSPHORUS 4.7 mg/dL (2.5-4.9); SODIUM SERUM 130.0 mmol/L (136-145); UREA NITROGEN, BLOOD 36.0 mg/dL (7-18)
[2024-10-29 08:00] VITALS: BP 129/84; TEMP 98.6; O2SAT 95
[2024-10-29] MEDS: PANTOPRAZOLE 40 MG TABLET.DR PO SCH (08:08)
[2024-10-29] MEDS: ASPIRIN 81 MG TAB.CHEW PO SCH (10:17)
[2024-10-29] MEDS: CARVEDILOL 12.5 MG TABLET PO SCH (10:17)
[2024-10-29 12:00] VITALS: BP 120/70; TEMP 99.5; O2SAT 94
[2024-10-29] MEDS: SEVELAMER CARBONATE 800 MG POWD.PACK PO SCH (12:19)
[2024-10-29 16:00] VITALS: BP 119/69; TEMP 99.5; O2SAT 95
[2024-10-29] MEDS ORDERED: AMOX-430 PO (17:45)
[2024-10-29] MEDS ORDERED: SEVE2.4P3 PO (17:45)
[2024-10-29] MEDS: ALBUMIN 25% 25 GM in PREMIX 1 EA IV PRN (19:24)
[2024-10-29 20:00] VITALS: BP 135/77; TEMP 98.1; O2SAT 95
== END 2024-10-29 21:11 | disposition home or self-care (01) ==
LOC: ER 12:18 → TELE1 14:42
PROVIDERS: ADMIT Nurse Practitioner Acute Care; ATTEND Nurse Practitioner Acute Care
PROC: 5A1D70Z Performance of Urinary Filtration, Intermittent, Less than 6 Hours Per Day (ICD-10-PCS; principal; 2024-10-28)
DX: K80.12 Calculus of gallbladder with acute and chronic cholecystitis without obstruction (principal); I13.2 Hypertensive heart and chronic kidney disease with heart failure and with stage 5 chronic kidney disease, or end stage renal disease; J90 Pleural effusion, not elsewhere classified; N18.6 End stage renal disease; E87.1 Hypo-osmolality and hyponatremia; E11.22 Type 2 diabetes mellitus with diabetic chronic kidney disease; D64.9 Anemia, unspecified; I50.9 Heart failure, unspecified; E66.9 Obesity, unspecified; Z68.33 Body mass index [BMI] 33.0-33.9, adult; Z79.4 Long term (current) use of insulin; Z99.2 Dependence on renal dialysis; Z79.899 Other long term (current) drug therapy; E87.5 Hyperkalemia; I25.10 Atherosclerotic heart disease of native coronary artery without angina pectoris; Z98.891 History of uterine scar from previous surgery; M89.8X9 Other specified disorders of bone, unspecified site; N39.0 Urinary tract infection, site not specified; Z79.82 Long term (current) use of aspirin
CPT/HCPCS: 36415; 71045-TC; 76705-TC; 80048-TC; 80076-TC; 82962-TC; 83690-TC; 83735-TC; 84100-TC; 85025-TC; 87081-TC; 87340; 90935-TC; 94799-TC; A4216; A4223; A6403; G0378; J1815; J1938; J2270; J2405; J2543; J3490; J7030; J7050; J7060; P9047

== ENCOUNTER 2024-10-31 09:10 | Inpatient (IN) | payer MEDICAID ==
[~2024-10-31] VITALS: Ht 167.6 cm; Wt 93.4 kg
[~2024-10-31 09:10] MED LIST changes: -AMLO-213 PO; +AMOX-430 PO; -AZIT250T PO; +CARV25TA PO; -CARV6.25 PO; -ERYT3.5O9 EACHEYE; -HYDR-4077 PO; +HYDR100T27 PO; +INSU100I4 SQ; -LISI40TA13 PO; -OXYM30SP21 NS; +SEVE2.4P3 PO
[2024-10-31] MEDS ORDERED: ONDANSETRON HCL/PF 4 MG/2 ML VIAL ONE (09:52)
[2024-10-31] MEDS ORDERED: MORPHINE SULFATE INJ 4 MG/ML DISP.SYRIN ONE (09:53)
[2024-10-31] MEDS: ONDANSETRON HCL/PF 4 MG/2 ML VIAL IVP ONE (09:59)
[2024-10-31] MEDS: MORPHINE SULFATE INJ 2 MG/ML DISP.SYRIN IV ONE (09:59)
[2024-10-31 10:08] LABS: CALCIUM, SERUM 9.1 mg/dL (8.5-10.1); CREATININE 6.9 mg/dL (0.6-1.3); SODIUM SERUM 129 mmol/L (136-145); UREA NITROGEN, BLOOD 53 mg/dL (7-18)
[2024-10-31 10:10] LABS: PLATELET COUNT (AUTO) 317 K/uL (150-450); RED BLOOD CELL COUNT(AUTO) 2.82 MIL/uL (4.0-5.2); RED CELL DISTRIBUTION WIDTH 13.4 % (11.5-15.0); WHITE BLOOD COUNT (AUTO) 12.0 K/uL (4.3-11.0)
[2024-10-31 10:15] LABS: ASPARTATE AMINOTRANSFERASE 83 U/L (15-37); TOTAL PROTEIN, SERUM 8.7 g/dL (6.4-8.2)
[2024-10-31] MEDS ORDERED: ASPIRIN 81 MG TAB.CHEW ONE (11:22)
[2024-10-31] MEDS: ASPIRIN 81 MG TAB.CHEW PO ONE (11:23)
[2024-10-31] MEDS ORDERED: INSU100I4 SQ (12:25)
[2024-10-31] MEDS ORDERED: AMOX-430 PO (12:25)
[2024-10-31] MEDS ORDERED: hydrALAZINE HCL IV 20 MG VIAL IV PRN (13:30)
[2024-10-31] MEDS ORDERED: DEXTROSE 50%-WATER 50 ML DISP.SYRIN IV PRN (13:30)
[2024-10-31] MEDS: BLOOD SUGAR DIAGNOSTIC 1 EACH STRIP VI SCH (14:13)
[2024-10-31] MEDS: INSULIN REGULAR, HUMAN 100 UNIT/ML 3 ML VIAL SQ PRN (14:17)
[2024-10-31] MEDS: MORPHINE SULFATE INJ 2 MG/ML DISP.SYRIN IV PRN (14:38)
[2024-10-31 16:00] VITALS: BP 134/74; TEMP 99.9; O2SAT 93
[2024-10-31] MEDS: CARVEDILOL 12.5 MG TABLET PO SCH (16:34)
[2024-10-31] MEDS ORDERED: DOSING PER PHARMACY-CEFEPIME IVPB XX PRN (19:30)
[2024-10-31 20:00] VITALS: BP 150/74; TEMP 100; O2SAT 92
[2024-10-31] MEDS: CEFEPIME 1 GM in IV D5W 50 ML IV SCH (20:38)
[2024-10-31] MEDS: HEPARIN SODIUM, PORCINE 5000 UNITS/1 ML VIAL SQ SCH (20:40)
[2024-10-31 21:00] VITALS: O2SAT 97
[2024-10-31] MEDS: *INSULIN REGULAR(HUMULIN R)HUM 100 UNIT/ML VIAL SQ PRN (21:48)
[2024-10-31] MEDS: ACETAMINOPHEN 325 MG TABLET PO PRN (21:57)
[2024-11-01] VITALS: BP 131/55; TEMP 99.1; O2SAT 98
[2024-11-01 04:00] VITALS: BP 139/63; TEMP 99.3; O2SAT 99
[2024-11-01 07:20] LABS: PLATELET COUNT (AUTO) 280 K/uL (150-450); RED BLOOD CELL COUNT(AUTO) 2.57 MIL/uL (4.0-5.2); RED CELL DISTRIBUTION WIDTH 13.5 % (11.5-15.0); WHITE BLOOD COUNT (AUTO) 17.2 K/uL (4.3-11.0)
[2024-11-01 07:52] LABS: ASPARTATE AMINOTRANSFERASE 55.0 U/L (15-37); CALCIUM, SERUM 8.5 mg/dL (8.5-10.1); PHOSPHORUS 5.3 mg/dL (2.5-4.9); SODIUM SERUM 126.0 mmol/L (136-145); TOTAL PROTEIN, SERUM 7.9 g/dL (6.4-8.2)
[2024-11-01 08:41] LABS: UREA NITROGEN, BLOOD 60.0 mg/dL (7-18)
[2024-11-01 08:42] VITALS: BP 140/68; TEMP 99.7; O2SAT 98
[2024-11-01 12:07] VITALS: BP 124/5; TEMP 100; O2SAT 100
[2024-11-01 16:09] VITALS: BP 119/54; TEMP 100.2; O2SAT 100
[2024-11-01 20:00] VITALS: BP 119/48; TEMP 100.6; O2SAT 97
[2024-11-02] VITALS: BP 147/68; TEMP 100; O2SAT 98
[2024-11-02 04:00] VITALS: BP 117/55; TEMP 99.3; O2SAT 96
[2024-11-02 07:47] LABS: PLATELET COUNT (AUTO) 377 K/uL (150-450); RED BLOOD CELL COUNT(AUTO) 2.64 MIL/uL (4.0-5.2); RED CELL DISTRIBUTION WIDTH 13.5 % (11.5-15.0); WHITE BLOOD COUNT (AUTO) 15.0 K/uL (4.3-11.0)
[2024-11-02 08:00] VITALS: BP 156/64; TEMP 100.4; O2SAT 98
[2024-11-02 08:15] LABS: ASPARTATE AMINOTRANSFERASE 47.0 U/L (15-37); CALCIUM, SERUM 8.6 mg/dL (8.5-10.1); CREATININE 6.1 mg/dL (0.6-1.3); PHOSPHORUS 5.3 mg/dL (2.5-4.9); SODIUM SERUM 130.0 mmol/L (136-145); TOTAL PROTEIN, SERUM 8.2 g/dL (6.4-8.2); UREA NITROGEN, BLOOD 39.0 mg/dL (7-18)
[2024-11-02] MEDS: EPOETIN ALFA (10,000 UNIT) 10,000 UNIT/ML VIAL SQ ONE (10:36)
[2024-11-02 12:00] VITALS: BP 110/60; TEMP 98.4; O2SAT 96
[2024-11-02 16:00] VITALS: BP 94/46; TEMP 99; O2SAT 97
[2024-11-02 20:00] VITALS: BP 133/59; TEMP 99.9; O2SAT 100
[2024-11-03] VITALS (7 sets, daily range): BP systolic 107–156; BP diastolic 56–76; TEMP 98.2–101.3; O2SAT 93–99
[2024-11-03] MEDS ORDERED: LACTULOSE 10 G/15 ML UDC (PYXIS) PO SCH (07:30)
[2024-11-03 07:54] LABS: ASPARTATE AMINOTRANSFERASE 35.0 U/L (15-37); SODIUM SERUM 129.0 mmol/L (136-145); TOTAL PROTEIN, SERUM 8.0 g/dL (6.4-8.2); UREA NITROGEN, BLOOD 58.0 mg/dL (7-18)
[2024-11-03] MEDS: DOCUSATE SODIUM LIQ 100 MG/10 ML UDC PO SCH (08:05)
[2024-11-03] MEDS: POLYETHYLENE GLYCOL 3350 17 GM POWD.PACK PO SCH (08:05)
[2024-11-03 08:28] LABS: CALCIUM, SERUM 8.4 mg/dL (8.5-10.1)
[2024-11-03 08:41] LABS: CREATININE 7.8 mg/dL (0.6-1.3)
[2024-11-03 12:34] LABS: PLATELET COUNT (AUTO) 379 K/uL (150-450); RED BLOOD CELL COUNT(AUTO) 2.55 MIL/uL (4.0-5.2); RED CELL DISTRIBUTION WIDTH 13.7 % (11.5-15.0); WHITE BLOOD COUNT (AUTO) 12.0 K/uL (4.3-11.0)
[2024-11-03] MEDS ORDERED: DOSING PER PHARMACY-VANCOMYCIN IV XX PRN (21:30)
[2024-11-03] MEDS: METRONIDAZOLE 500 MG TABLET PO SCH (22:03)
[2024-11-03] MEDS: POLYETHYLENE GLYCOL 3350 17 GM POWD.PACK PO ONE (22:12)
[2024-11-03] MEDS: VANCOMYCIN 1 GM /D5W 250 ML PB IV ONE ×2 (22:51→22:58)
[2024-11-03] MEDS: VANCOMYCIN 1.5 GM in IV D5W 500 ML IV ONE (23:03)
[2024-11-04] VITALS (7 sets, daily range): BP systolic 121–143; BP diastolic 54–64; TEMP 97.9–99.3; O2SAT 94–100
[2024-11-04 06:57] LABS: PLATELET COUNT (AUTO) 440 K/uL (150-450); RED BLOOD CELL COUNT(AUTO) 2.53 MIL/uL (4.0-5.2); RED CELL DISTRIBUTION WIDTH 13.6 % (11.5-15.0); WHITE BLOOD COUNT (AUTO) 13.0 K/uL (4.3-11.0)
[2024-11-04 07:13] LABS: CALCIUM, SERUM 8.2 mg/dL (8.5-10.1); CREATININE 4.8 mg/dL (0.6-1.3); SODIUM SERUM 132.0 mmol/L (136-145); UREA NITROGEN, BLOOD 26.0 mg/dL (7-18)
[2024-11-04 07:14] LABS: ASPARTATE AMINOTRANSFERASE 24.0 U/L (15-37); TOTAL PROTEIN, SERUM 7.9 g/dL (6.4-8.2)
[2024-11-04] MEDS: ONDANSETRON HCL/PF 4 MG/2 ML VIAL IVP PRN (08:11)
[2024-11-04] MEDS ORDERED: VANCOMYCIN POST DIALYSIS 500MG IV PRN (14:00)
[2024-11-04 22:06] LABS: HEPATITIS B CORE AB, TOTAL Negative (Negative); HEPATITIS B SURFACE AB (QUAL) Reactive (.)
[2024-11-05] VITALS: BP 148/61; TEMP 99; O2SAT 96
[2024-11-05 04:00] VITALS: BP 140/58; TEMP 98.1; O2SAT 100
[2024-11-05 07:52] LABS: ASPARTATE AMINOTRANSFERASE 17.0 U/L (15-37); CALCIUM, SERUM 8.9 mg/dL (8.5-10.1); CREATININE 5.8 mg/dL (0.6-1.3); SODIUM SERUM 131.0 mmol/L (136-145); TOTAL PROTEIN, SERUM 8.2 g/dL (6.4-8.2); UREA NITROGEN, BLOOD 38.0 mg/dL (7-18)
[2024-11-05 08:00] VITALS: BP 153/68; TEMP 98.4; O2SAT 94
[2024-11-05 08:07] LABS: PLATELET COUNT (AUTO) 535 K/uL (150-450); RED BLOOD CELL COUNT(AUTO) 2.64 MIL/uL (4.0-5.2); RED CELL DISTRIBUTION WIDTH 13.7 % (11.5-15.0); WHITE BLOOD COUNT (AUTO) 13.3 K/uL (4.3-11.0)
[2024-11-05] MEDS: EPOETIN ALFA (10,000 UNIT) 10,000 UNIT/ML VIAL SQ ONE (10:46)
[2024-11-05] MEDS: MAG HYDROX/AL HYDROX/SIMETH 30 ML UDC PO PRN (13:55)
[2024-11-05 16:00] VITALS: BP 143/61; TEMP 99; O2SAT 98
[2024-11-06 07:00] VITALS: BP 164/68; TEMP 98.8; O2SAT 98
[2024-11-06 07:22] LABS: ASPARTATE AMINOTRANSFERASE 19.0 U/L (15-37); CALCIUM, SERUM 8.7 mg/dL (8.5-10.1); CREATININE 4.4 mg/dL (0.6-1.3); PHOSPHORUS 3.9 mg/dL (2.5-4.9); SODIUM SERUM 133.0 mmol/L (136-145); TOTAL PROTEIN, SERUM 8.2 g/dL (6.4-8.2); UREA NITROGEN, BLOOD 24.0 mg/dL (7-18)
[2024-11-06 07:24] LABS: PLATELET COUNT (AUTO) 531 K/uL (150-450); RED BLOOD CELL COUNT(AUTO) 2.84 MIL/uL (4.0-5.2); RED CELL DISTRIBUTION WIDTH 13.8 % (11.5-15.0); WHITE BLOOD COUNT (AUTO) 13.0 K/uL (4.3-11.0)
[2024-11-06 08:25] VITALS: BP 164/68
== END 2024-11-06 12:15 | disposition home or self-care (01) ==
LOC: ER 09:17 → TELE 13:08 → MED 11-05 11:51
PROVIDERS: ADMIT Internal Medicine; ATTEND Internal Medicine
PROC: 5A1D70Z Performance of Urinary Filtration, Intermittent, Less than 6 Hours Per Day (ICD-10-PCS; principal; 2024-11-01)
DX: K80.40 Calculus of bile duct with cholecystitis, unspecified, without obstruction (principal); I13.2 Hypertensive heart and chronic kidney disease with heart failure and with stage 5 chronic kidney disease, or end stage renal disease; I21.A1 Myocardial infarction type 2; E87.1 Hypo-osmolality and hyponatremia; I27.20 Pulmonary hypertension, unspecified; N18.6 End stage renal disease; Z99.2 Dependence on renal dialysis; E87.5 Hyperkalemia; E11.22 Type 2 diabetes mellitus with diabetic chronic kidney disease; D64.9 Anemia, unspecified; I25.10 Atherosclerotic heart disease of native coronary artery without angina pectoris; Z68.33 Body mass index [BMI] 33.0-33.9, adult; Z98.891 History of uterine scar from previous surgery; Z79.4 Long term (current) use of insulin; Z79.899 Other long term (current) drug therapy; K59.00 Constipation, unspecified; I50.9 Heart failure, unspecified; E66.01 Morbid (severe) obesity due to excess calories; J90 Pleural effusion, not elsewhere classified; M89.8X9 Other specified disorders of bone, unspecified site
CPT/HCPCS: 36415; 71045-TC; 74018; 76705-TC; 78226; 80048-TC; 80053-TC; 80076-TC; 80202-TC; 82962-TC; 83690-TC; 83735-TC; 84100-TC; 84484-TC; 85025-TC; 86704; 86706; 87040-TC; 87340; 90935-TC; 93307-TC; A4223; A9537; G0378; J0692; J0885; J1644; J1815; J2270; J2405; J3370; J3371; J7030; J7050; J7060